=== PATIENT | female | born 1950 | race African-American/Black ===

== ENCOUNTER 2016-09-18 04:38 | Emergency (ER) | payer MEDICARE, OTHER ==
[2016-09-18 05:41] LABS: ABSOLUTE EOSINOPHILS # (AUTO) 0.1 10^3/uL (0.0-0.6); ABSOLUTE LYMPHOCYTES (AUTO) 0.6 10^3/uL (0.5-4.7); ABSOLUTE MONOCYTES (AUTO) 0.5 10^3/uL (0.1-1.4); ABSOLUTE NEUT (AUTO) 3.1 10^3/uL (1.7-8.2); BASOPHILS % (AUTO) 0.2 % (0-2); EOSINOPHILS % (AUTO) 1.5 % (0-6); HEMATOCRIT 37.6 % (36.0-47.0); HEMOGLOBIN 12.1 g/dL (12.0-15.5); HGB HCT DIFFERENCE -1.3; LYMPHOCYTES % (AUTO) 14.2 % (13-45); MEAN CORPUSCULAR HEMOGLOBIN 29.8 pg (27.0-33.4); MEAN CORPUSCULAR HGB CONC 32.1 g/dL (32.0-36.0); MEAN CORPUSCULAR VOLUME 93 fl (80-97); MONOCYTES % (AUTO) 11.2 % (3-13); RED BLOOD COUNT 4.04 10^6/uL (3.72-5.28); RED CELL DISTRIBUTION WIDTH 14.8 % (11.5-14.0); SEGMENTED NEUTROPHILS % (AUTO) 72.9 % (42-78); WHITE BLOOD COUNT 4.3 10^3/uL (4.0-10.5)
[2016-09-18 05:56] LABS: APPEARANCE,URINE SLIGHTLY-CLOUDY; BILIRUBIN,URINE NEGATIVE (NEGATIVE); GLUCOSE, URINE NEGATIVE (NEGATIVE); KETONES,URINE NEGATIVE (NEGATIVE); LEUKOCYTE ESTERASE,URINE TRACE (NEGATIVE); NITRITE,URINE NEGATIVE (NEGATIVE); PROTEIN,URINE 30 mg/dL (NEGATIVE); URINE SPECIFIC GRAVITY 1.026
[2016-09-18 06:15] LABS: ALANINE AMINOTRANSFERASE 32 U/L (9-52); ALBUMIN 4.2 g/dL (3.5-5.0); ALKALINE PHOSPHATASE 74 U/L (38-126); ANION GAP 11 (5-19); ASPARTATE AMINO TRANSFERASE 44 U/L (14-36); BILIRUBIN,TOTAL 1.1 mg/dL (0.2-1.3); BLOOD UREA NITROGEN 29 mg/dL (7-20); CALCIUM 9.5 mg/dL (8.4-10.2); CARBON DIOXIDE 30 mmol/L (22-30); CHLORIDE 100 mmol/L (98-107); CREATININE RESULT 1.34 mg/dL (0.52-1.25); GLUCOSE 130 mg/dL (75-110); LIPASE 81.8 U/L (23-300); SODIUM 140.8 mmol/L (137-145); TOTAL PROTEIN 8.6 g/dL (6.3-8.2)
[2016-09-18] MEDS ORDERED: NORMAL SALINE 500 ML IV ONE (06:28)
[2016-09-18] MEDS ORDERED: ONDANSETRON HCL INJ/PF 4 MG/2 ML SDV IV ONE (06:28)
--- NOTE | 2016-09-18 06:33 | ER Document Report ---
ED General - General Chief Complaint: Nausea/Vomiting/Diarrhea Stated Complaint: VOMITING,ABDOMINAL PAIN Mode of Arrival: Ambulatory Information source: Patient Notes: This is a 66-year-old -[place] female who presents with nausea vomiting and diarrhea along with abdominal discomfort for the past 2 days. Also she states that she has had subjective fevers and had a recorded temperature of 100.4 at 2 AM this morning. She denies any recent travel or known sick contacts. Her last emesis and diarrhea were both yesterday evening and she has not attempted to take any oral fluids since about 2200 last night. She denies any dysuria or urinary complaints. She does endorse lower abdominal pain. TRAVEL OUTSIDE OF THE [place] IN LAST 30 DAYS: No - Related Data Allergies/Adverse Reactions: ibandronate sodium [From Boniva] Allergy (Severe, Verified 06/30/13 08:37) Seizures prochlorperazine edisylate [From Compazine] Allergy (Intermediate, Verified 08:37) delerious, altered mental status prochlorperazine maleate [From Compazine] Allergy (Intermediate, Verified 08:37) delerious, altered mental status Sulfa (Sulfonamide Antibiotics) Allergy (Mild, Verified 06/30/13 08:37) Hives Past Medical History - General Information source: Patient, [facility] Records - Social History Smoking Status: Never Smoker Chew tobacco use (# tins/day): No Frequency of alcohol use: None Drug Abuse: None Family History: None Patient has suicidal ideation: No Patient has homicidal ideation: No - Past Medical History Cardiac Medical History: Reports: Hx Coronary Artery Disease - HIGH CHOLESTEROL , Hx Hypertension Denies: Hx Heart Attack Pulmonary Medical History: Reports: Hx Pneumonia Denies: Hx Asthma, Hx Bronchitis, Hx COPD Neurological Medical History: Reports: Hx Seizures - reaction from taking boniva. Denies: Hx Cerebrovascular Accident Endocrine Medical History: Reports: Hx Hypothyroidism Renal/ Medical History: Denies: Hx Peritoneal Dialysis Musculoskeltal Medical History: Denies Hx Arthritis Past Surgical History: Reports: Hx Hysterectomy, Hx Thyroid Surgery - Thyroidectomy. Denies: Hx Pacemaker - Immunizations Hx Diphtheria, Pertussis, Tetanus Vaccination: Yes Review of Systems - Review of Systems Notes: REVIEW OF SYSTEMS: CONSTITUTIONAL : As per history of present illness EENT: Denies eye, ear, throat, or mouth pain or symptoms. Denies nasal or sinus congestion. CARDIOVASCULAR: Denies chest pain. RESPIRATORY: Denies cough, cold, or chest congestion. Denies shortness of breath, difficulty breathing, or wheezing. GASTROINTESTINAL: As per history of present illness GENITOURINARY: Denies difficulty urinating, painful urination, burning, frequency, or blood in urine. MUSCULOSKELETAL: Denies neck or back pain or joint pain or swelling. SKIN: Denies rash or skin lesions. HEMATOLOGIC : Denies easy bruising or bleeding. LYMPHATIC: Denies swollen, enlarged glands. NEUROLOGICAL: Denies altered mental status or loss of consciousness. Denies headache. PSYCHIATRIC: Denies anxiety or stress or depression. ALL OTHER SYSTEMS REVIEWED AND NEGATIVE. Physical Exam - Vital signs Vitals: Temp Pulse Resp BP Pulse Ox 98.7 F 89 16 98/69 L 96 09/18/16 04:45 09/18/16 04:45 09/18/16 04:45 09/18/16 04:45 09/18/16 04:45 - Notes Notes: PHYSICAL EXAMINATION: GENERAL: Well-appearing, well-nourished adult female, pleasant and conversant and no acute distress HEAD: Atraumatic, normocephalic. EYES: Pupils equal round and reactive to light, extraocular movements intact, sclera anicteric, conjunctiva are normal. ENT: nares patent, oropharynx clear without exudates. Mucous membranes somewhat dry NECK: Normal range of motion, supple without lymphadenopathy LUNGS: Breath sounds clear to auscultation bilaterally and equal. No wheezes rales or rhonchi. HEART: Regular rate and rhythm without murmurs ABDOMEN: Soft, diffuse mild TTP worse in lower quadrants, no guarding/rebound/ rigidity, bowel sounds active EXTREMITIES: Normal range of motion, no pitting or edema. No cyanosis. NEUROLOGICAL: Cranial nerves grossly intact. Normal speech. No gross focal motor or sensory deficits appreciated. PSYCH: Normal mood, normal affect. SKIN: Warm, Dry, normal turgor, no rashes or lesions noted. Course - Re-evaluation Re-evalutation: 09/18/16 08:16 Patient states that she is feeling better after the IV fluids and Zofran. She has had no vomiting in the emergency department. Her lab evaluation is reassuring. She has a benign nonsurgical abdomen. Her CT demonstrated no surgical process. She does have a somewhat distended gallbladder but no signs of cholecystitis and reassuring blood work. Clinically her symptoms are not consistent with biliary colic as she has had nausea vomiting and diarrhea with lower abdominal cramping does not have any right upper quadrant tenderness to palpation. I have recommended that she follow up for an outpatient gallbladder ultrasound through her primary care physician. She will be discharged with Zofran to take as needed as well as rehydration instructions. She will follow- up with her primary care physician. We discussed strict return precautions to include high fevers persistent vomiting or worsening symptoms and she is very comfortable with this plan. - Vital Signs Vital signs: Temp Pulse Resp BP Pulse Ox 98.8 F 71 17 116/57 L 100 09/18/16 07:47 09/18/16 07:47 09/18/16 07:47 09/18/16 07:47 09/18/16 07:47 - Laboratory Result Diagrams: 09/18/16 05:05 09/18/16 05:05 Laboratory results interpreted by me: 09/18/16 09/18/16 09/18/16 05:05 05:05 05:05 RDW 14.8 H BUN 29 H Creatinine 1.34 H Est GFR ( Amer) 48 L Est GFR (Non-Af Amer) 39 L Glucose 130 H AST 44 H Total Protein 8.6 H Urine Protein 30 H Urine Urobilinogen 2.0 H Ur Leukocyte Esterase TRACE H Discharge - Discharge Clinical Impression: Nausea, vomiting, and diarrhea, Dehydration Condition: Stable Disposition: HOME, SELF-CARE Additional Instructions: VOMITING: Vomiting (or nausea without vomiting) can be caused by many other different problems. It can mean that something's wrong with the stomach, such as ulcers or inflammation or the intestinal tract, such as appendicitis. But it can also be a symptom of a problem that has nothing to do with the stomach or intestines. Vomiting is common with severe headaches, earaches, tonsillitis, and kidney infections, etc. We see it with pneumonia or heart attacks. Drugs can cause nausea and vomiting. Many abdominal problems cause vomiting; for example, gallstones, kidney stones, pancreatitis, and intestinal obstruction ( blocked bowels). In most cases, curing the vomiting depends on fixing the problem that caused it. For temporary relief, we may use an anti-nausea medicine. For home use, we can prescribe suppositories, chewable pills, pills that dissolve in the mouth, or liquid anti-nausea drugs. If the vomiting seems to be caused by a problem in the stomach, acid-suppressing drugs may be prescribed as well. It's important to avoid dehydration. Sip small amounts of clear liquids ( soft drinks, tea, broth, etc) . Try to take fluids frequently even if you are vomiting to prevent dehydration. Take increasing amounts of fluid and when liquids are being consumed successfully, advance to small amounts of bland food (toast, soups, mashed potatoes, etc.) until you are able to resume a regular diet. Avoid aspirin, tobacco, and alcohol. If the vomiting worsens, if the problem that's making you vomit worsens, or if there's evidence of bleeding in the stomach (such as black, tarry stool, or bloody or black vomit), you should return immediately. Also, return if abdominal pain worsens or becomes localized to one area or you develop high fever. Call your doctor if you aren't improved in 24 hours. DIARRHEA, NON-SPECIFIC: Diarrhea means frequent, watery stools. There are many causes. Any problem that keeps the intestinal tract from absorbing water from the stool can lead to diarrhea. A sudden new diarrhea problem is usually caused by a virus, food sensitivity, toxic bacteria, or drugs. In this case, we expect the problem to go away soon. Testing is done only if you seem seriously ill from the diarrhea. If you have chronic diarrhea, or diarrhea that keeps coming back, we need to find out why. Chronic diarrhea can be due to inflammation of the bowels such as Crohn's disease or ulcerative colitis, food sensitivity such as intolerance to lactose or wheat protein, irritable bowel syndrome, and other problems. If your diarrhea is a significant problem but it's not clear why you have it, we' ll refer you to a specialist for further testing. During an episode of diarrhea, drink small amounts (two to six ounces) of clear liquids (soft drinks, sport drinks, herb teas, broth, etc). Take fluids frequently to prevent dehydration. It's usually not a problem to take mild anti- diarrhea medication such as Kaopectate or Pepto-Bismol. As the diarrhea eases, advance to small amounts of bland food (mashed potato, toast) for 24 hours. Call the physician if blood appears in your vomit or stool, if vomiting lasts longer than 24 hours, if the abdominal pain worsens or becomes localized to one area, if you develop high fever, or if you become lightheaded and weak. VIRAL SYNDROME: The physician has diagnosed a viral infection. Viruses not only cause "colds," but can cause many different symptoms including generalized aching, fever, headache, cough, diarrhea, nausea, vomiting, and fatigue. The treatment, for the most part, is simply relief of symptoms. This means that antibiotics are usually not given. Rest, fluids, pain medications and, occasionally, medication for the specific symptoms that are most bothersome will be prescribed. Use good handwashing to avoid passing the virus to others. Shared toys should be cleaned with disinfectant. Clean the toilets, sinks, and counter surfaces in bathrooms. Launder clothing in hot water. Contact the physician if you develop any new or unusual symptoms such as severe headache, stiff neck, high fever, chest pain, productive cough, or shortness of breath. You should be rechecked if you don't see marked improvement within seven to 10 days. INTRAVENOUS (I V) FLUIDS: As part of your care today, you received intravenous (IV) fluids. IV fluids are administered to patients who are dehydrated or to those who have certain chemical (electrolyte) abnormalities that need correcting. ANTINAUSEA MEDICATION: You have been given a medication to suppress nausea and vomiting. This type of medication can be given as a shot, pill, or suppository. It will usually last for many hours. Pills and shots usually last six to eight hours. For the typical illness, only one or two doses of the medication may be necessary. Mild lightheadedness may occur. This type of medicine can cause drowsiness. Do not drive or operate dangerous machinery while under its influence. Do not mix with alcohol. See your doctor at once if you have muscle spasms or tightness, or uncontrollable motions (particularly of the neck, mouth, or jaw). Persistent vomiting or severe lightheadedness should also be evaluated by the physician. FOLLOW-UP CARE: If you have been referred to a physician for follow-up care, call the physician s office for an appointment as you were instructed or within the next two days. If you experience worsening or a significant change in your symptoms, notify the physician immediately or return to the Emergency Department at any time for re-evaluation. As we discussed please follow-up with your primary care physician in the next 24 -48 hours. As an outpatient you should proceed with an ultrasound evaluation of her gallbladder. Please rest at home and drink plenty of fluids. Return to the emergency department for repeat evaluation for any persistent high fevers, worsening abdominal pain, persistent vomiting despite medication, or any worsening symptoms or concerns. Prescriptions: Ondansetron [Zofran Odt 4 mg Tablet] 1 tab PO Q4H PRN #15 tab.rapdis PRN Reason: For Nausea/Vomiting Referrals: THOMAS ROSE MD [Primary Care Provider] - Follow up in 3-5 days
[2016-09-18 08:40] VITALS: BP 113/52
== END 2016-09-18 08:44 | disposition home or self-care (01) ==
LOC: ER 04:38
DX: R11.2 Nausea with vomiting, unspecified (principal); R19.7 Diarrhea, unspecified; K82.8 Other specified diseases of gallbladder; R10.30 Lower abdominal pain, unspecified; E86.0 Dehydration; I25.10 Atherosclerotic heart disease of native coronary artery without angina pectoris; I10 Essential (primary) hypertension; Z88.8 Allergy status to other drugs, medicaments and biological substances; Z88.2 Allergy status to sulfonamides; Z90.710 Acquired absence of both cervix and uterus
CPT/HCPCS: 99284; 96374; 36415; 83690; 85025; 80053; 81001; 74176; J2405; J7040

== ENCOUNTER → 2017-04-09 | Outpatient (CLI) | payer MEDICARE, OTHER ==
--- NOTE | 2017-04-09 17:50 | WOMENS IMAGING REPORT ---
EXAM DESCRIPTION: 3D SCREENING MAMMO BILAT COMPLETED DATE/TIME: 04/09/2017 10:19 am REASON FOR STUDY: SCREENING MAMMO Z12.31 ENCNTR SCREEN MAMMOGRAM FOR MALIGNANT NEOPLASM OF JOSE COMPARISON: Multiple since 2008 TECHNIQUE: Standard craniocaudal and mediolateral oblique views of each breast recorded using digita l acquisition and breast tomosynthesis. LIMITATIONS: None. FINDINGS: No masses, calcifications or architectural distortion. No areas of suspicion. Read with the assistance of CAD. .[facility] - R2 [employer]ova Version 1.3 .[facility] - R2 Cenova Version 1.3 .[facility] - R2 Cenova Version 2.4 .[facility] [place] - R2 Cenova Version 2.4 .[facility] - R2 [employer] Version 9.2 IMPRESSION: NORMAL MAMMOGRAM. BIRADS 1. BREAST DENSITY: b. There are scattered areas of fibroglandular density. BIRAD: 1 NEGATIVE RECOMMENDATION: ROUTINE SCREENING Please continue yearly bilateral screening tomosynthesis in April 2018. COMMENT: The patient has been notified of the results by letter per [place] requirements. Additional no tification policies are in place for contacting patient with suspicious or incomplete findings. Quality ID #[id number]: The [employer] recommends an annual screening mammogram for women aged 40 years or over. This facility utilizes a reminder system to ensure that all patients receive reminder letters, and/or direct phone calls for appointments. This includes reminders for routine scr eening mammograms, diagnostic mammograms, or other Breast Imaging Interventions when appropriate. Th is patient will be placed in the appropriate reminder system. The [employer] (ACR) has developed recommendations for screening MRI of the breast s in certain patient populations, to be used in conjunction with mammography. Breast MRI surveillanc e may be appropriate for women with more than 20% lifetime risk of developing breast cancer as deter mined by genetic testing, significant family history of the disease, or history of mantle radiation f or Hodgkins Disease. ACR Practice Guidelines 2008. DBT Technology DBT is a type of tomographic mammography. With conventional mammography, overlapping breast tissue ma y make lesions difficult to detect, even with good compression. DBT uses an x-ray tube that rotates a round the breast, taking images at different angles. These images are then combined to create thin sl ices of the breast that the radiologist can view as a 3D reconstruction. The [employer] unit can perform full-field digital mammograms (2D imaging); or DBT (3D imaging); or both, in a combination mode that quickly performs both the mammogram and the tomosynthesis scan while the breast is still compressed. PQRS 6045F: Fluoroscopic imaging is not utilized for breast tomosynthesis. TECHNICAL DOCUMENTATION: FINDING NUMBER: (1) ASSESSMENT: (1) JOB ID: [id number] [employer]- All Rights Reserved
== END ==
LOC: WI 10:04
PROVIDERS: ATTEND Internal Medicine Geriatric Medicine
DX: Z12.31 Encounter for screening mammogram for malignant neoplasm of breast (principal)
CPT/HCPCS: 77063; G0202; 77067

== ENCOUNTER 2017-09-23 21:09 | Emergency (ER) | payer MEDICARE, OTHER ==
[2017-09-23] MEDS ORDERED: HYDROMORPHONE HCL INJ/PF 2 MG/ML AMPULE IV ONE ×3 (21:12→22:52)
[2017-09-23] MEDS ORDERED: ONDANSETRON HCL INJ/PF 4 MG/2 ML SDV IV ONE (21:12)
--- NOTE | 2017-09-23 21:22 | ER Document Report ---
ED Extremity Problem, Upper - General Stated Complaint: FALL,RIGHT ARM LACERATIONS Time Seen by Provider: 09/23/17 21:11 Mode of Arrival: Medic Information source: Patient, Relative TRAVEL OUTSIDE OF THE [place] IN LAST 30 DAYS: No - HPI Patient complains to provider of: Injury Onset: Just prior to arrival Recent injury: Yes Where: Home Quality of pain: Sharp Severity of pain: Moderate Context: Fall - FELL INTO CABINET, BROKE GLASS IN DOOR Associated symptoms: None Exacerbated by: Movement Relieved by: Rest, Positioning Similar symptoms previously: No Recently seen / treated by doctor: No - Related Data Allergies/Adverse Reactions: ibandronate sodium [From Boniva] Allergy (Severe, Verified 06/30/13 08:37) Seizures prochlorperazine edisylate [From Compazine] Allergy (Intermediate, Verified 08:37) delerious, altered mental status prochlorperazine maleate [From Compazine] Allergy (Intermediate, Verified 08:37) delerious, altered mental status Sulfa (Sulfonamide Antibiotics) Allergy (Mild, Verified 06/30/13 08:37) Hives Past Medical History - General Information source: Patient - Social History Smoking Status: Never Smoker Cigarette use (# per day): No Chew tobacco use (# tins/day): No Frequency of alcohol use: None Drug Abuse: None Lives with: Spouse/Significant other Family History: None Patient has suicidal ideation: No Patient has homicidal ideation: No - Past Medical History Cardiac Medical History: Reports: Hx Coronary Artery Disease - HIGH CHOLESTEROL , Hx Hypertension Denies: Hx Heart Attack Pulmonary Medical History: Reports: Hx Pneumonia Denies: Hx Asthma, Hx Bronchitis, Hx COPD Neurological Medical History: Reports: Hx Seizures - reaction from taking boniva. Denies: Hx Cerebrovascular Accident Endocrine Medical History: Reports: Hx Hypothyroidism Renal/ Medical History: Denies: Hx Peritoneal Dialysis Musculoskeltal Medical History: Denies Hx Arthritis Psychiatric Medical History: Reports: None Past Surgical History: Reports: Hx Hysterectomy, Hx Thyroid Surgery - Thyroidectomy. Denies: Hx Pacemaker - Immunizations Hx Diphtheria, Pertussis, Tetanus Vaccination: Yes Review of Systems - Review of Systems Constitutional: No symptoms reported EENT: No symptoms reported Cardiovascular: No symptoms reported Respiratory: No symptoms reported Gastrointestinal: No symptoms reported Genitourinary: No symptoms reported Female Genitourinary: Post menopausal Musculoskeletal: No symptoms reported Skin: See HPI Neurological/Psychological: No symptoms reported Physical Exam - Vital signs Vitals: Temp 97.4 F 09/23/17 21:30 Interpretation: Normal. No: Hypotensive, Tachycardic, Tachypneic - General General appearance: Appears well In distress: None - HEENT Head: Normocephalic Eyes: Normal Ears: Normal Nasal: Normal Mouth/Lips: Normal Mucous membranes: Normal - Respiratory Respiratory status: No respiratory distress - Cardiovascular Rhythm: Regular - Abdominal Inspection: Normal Distension: No distension - Extremities General upper extremity: No: Normal inspection - R. ELBOW (SEE BELOW) General lower extremity: Normal inspection Elbow: Laceration - 3 cm OVER DISTAL BICEP, 8.3 cm 0VER PROXIMAL FLEXOR MUSCLES. DEPTH THRU SQ FAT. - Neurological Neuro grossly intact: Yes Cognition: Normal Orientation: AAOx4 Sensory: Normal - INTACT ALL 3 PRINCIPAL NERVES DISTAL TO INJURY - Psychological Associated symptoms: Normal affect, Normal mood - Skin Skin Temperature: Warm Skin Moisture: Dry Skin Color: Normal Skin Turgor: Elastic Course - Vital Signs Vital signs: Temp Pulse Resp BP Pulse Ox 97.4 F 18 119/59 L 98 09/23/17 21:30 09/23/17 22:01 09/23/17 22:01 09/23/17 22:01 Procedures - Immobilization Right Arm Time completed: 00:15 Pre-Proc Neuro Vasc Exam: Normal Immobilizer type: Long arm posterior Performed by: PCT Post-Proc Neuro Vasc Exam: Normal, Unchanged from pre-exam Alignment checked and good: Yes - Laceration/Wound Repair Right Arm Time completed: 23:58 Wound length (cm): 11.3 Wound's Depth, Shape: Superficial, Linear Laceration pre-procedure: Sterile PPE donned, Sterile drapes applied, Shur- Clens applied Anesthetic type: 1% Lidocaine w/epi Volume Anesthetic (mLs): 20 Wound explored: Clean Irrigated w/ Saline (mLs): 180 Wound Debrided: Minimal Wound Repaired With: Sutures Suture Size/Type: 4:0, Prolene Number of Sutures: 21 Layer Closure?: Yes Deep Layer Suture Size/Type: 4:0, Other - vicryl Number Deep Layer Sutures: 5 Post-procedure wound care: Sterile dressing applied, Splint applied, Sling applied Post-procedure NV exam normal: Yes Complications: No Notes: 09/24/17 00:05 Wound depth extends through the subcutaneous fatty layer and exposes the muscle fascia. There is a small (1.5 cm) laceration of the muscle fascia of the forearm extensor muscles. No major vessels or nerves are identified. Adult Front & Back picture: 1 - 3.0 cm LAC, SUTURED 2 - 8.3 cm LAC, SUTURED Discharge - Discharge Clinical Impression: Laceration of arm, right, multiple sites Qualifiers: Encounter type: initial encounter Qualified Code(s): S41.111A - Laceration without foreign body of right upper arm, initial encounter Condition: Stable Disposition: HOME, SELF-CARE Instructions: Laceration Care ([facility]), Prophylactic Antibiotic ([facility]), Oral Narcotic Medication ([facility]), Elevate the Injury ([facility]), Temporary Splint ([facility]) Additional Instructions: KEEP SPLINT ON AND BANDAGE INTACT FOR NEXT 48 HOURS. KEEP THE INJURY ELEVATED MUCH POSSIBLE. MEDS DIRECTED. RETURN TO E.R. FOR WOUND CHECK WEDNESDAY OR WEDNESDAY. FOLLOW UP WITH DR. DRAPER NEXT WEEK, CALL OFFICE TOMORROW (WEDNESDAY) FOR APPOINTMENT. RETURN TO E.R. FOR RE-EVALUATION IF ANY PROBLEMS ARISE, OR IF YOU FEEL YOU ARE GETTING WORSE, ANY TIME. Prescriptions: Hydrocodone/Acetaminophen [[place] 5-325 mg Tablet] 1 tab PO Q4HP PRN #14 tablet PRN Reason: For Pain Cephalexin Monohydrate [Keflex 500 mg Capsule] 500 mg PO QID #20 capsule Referrals: FLORENCIA DRAPER, [ACTIVE STAFF] - Follow up as needed
[2017-09-23] MEDS ORDERED: HYDROMORPHONE HCL INJ/PF 2 MG/ML AMPULE ONE (21:52)
--- NOTE | 2017-09-23 22:12 | RADIOLOGY REPORT (SQ) ---
EXAM DESCRIPTION: ELBOW RIGHT AP/LAT COMPLETED DATE/TIME: 09/23/2017 9:47 pm REASON FOR STUDY: LACERATED BY BROKEN GLASS, R/O FB COMPARISON: None. NUMBER OF VIEWS: Four views. TECHNIQUE: AP, lateral, and both oblique radiographic images acquired of the right elbow. LIMITATIONS: None. FINDINGS: MINERALIZATION: Normal. BONES: No acute fracture or dislocation. No worrisome bone lesions. JOINT: No effusion. SOFT TISSUES: Mild soft tissue swelling. No foreign body. OTHER: No other significant finding. IMPRESSION: No fracture identified. TECHNICAL DOCUMENTATION: JOB ID: [id number] [employer]- All Rights Reserved Reading location - IP/workstation name: [email or web address]
[2017-09-23] MEDS ORDERED: LIDOCAINE 1%/EPINEPHRINE INJ 20 ML VIAL INJ ONE ×2 (22:17→23:23)
[2017-09-24] MEDS ORDERED: CEPHALEXIN 500 MG CAPSULE PO ONE (00:31)
[2017-09-24] MEDS ORDERED: ONDANSETRON ODT 4 MG TAB (6 TAB/ER DISP) PO PRN (00:31)
[2017-09-24] MEDS ORDERED: HYDROCODONE/ACETAMINOPHEN 5-325 MG (6 TAB/ER DISP) PO PRN (00:34)
[2017-09-24 01:30] VITALS: BP 120/60
== END 2017-09-24 01:00 | disposition home or self-care (01) ==
LOC: ER 21:09
PROC: 0HQDXZZ Repair Right Lower Arm Skin, External Approach (ICD-10-PCS; principal; 2017-09-23)
DX: S41.111A Laceration without foreign body of right upper arm, initial encounter (principal); S51.811A Laceration without foreign body of right forearm, initial encounter; W18.39XA Other fall on same level, initial encounter; Y92.009 Unspecified place in unspecified non-institutional (private) residence as the place of occurrence of the external cause; I10 Essential (primary) hypertension; I25.10 Atherosclerotic heart disease of native coronary artery without angina pectoris; E03.9 Hypothyroidism, unspecified; Z88.2 Allergy status to sulfonamides; Z90.710 Acquired absence of both cervix and uterus
CPT/HCPCS: 96376; 99284; 96374; 96375; 73070; 12004; A9270 ×3; J3490; J1170; J2405

== ENCOUNTER 2017-09-26 12:30 | Emergency (ER) | payer MEDICARE, OTHER ==
--- NOTE | 2017-09-26 13:28 | ER Document Report ---
ED Wound - General Chief Complaint: Wound Recheck Stated Complaint: RECHECK/RIGHT ARM INJURY Time Seen by Provider: 09/26/17 12:51 Mode of Arrival: Ambulatory Information source: Patient TRAVEL OUTSIDE OF THE [place] IN LAST 30 DAYS: No - HPI Patient complains to provider of: Laceration Notes: Patient is here today for recheck of her right arm lacerations. She was seen here on the after falling and sustaining deep lacerations to the right bicep area. This laceration was repaired in the emergency department. She had several sutures placed in 2 separate lacerations and was placed in a posterior arm splint and a sling. She states that she has been doing well. She denies any significant pain. She denies any fevers. She denies any numbness, tingling , weakness. She has an appointment for follow-up with orthopedics tomorrow. She denies chest pain or shortness of breath. No nausea, vomiting, diarrhea. She denies any other complaints at this time. - Related Data Allergies/Adverse Reactions: ibandronate sodium [From Boniva] Allergy (Severe, Verified 06/30/13 08:37) Seizures prochlorperazine edisylate [From Compazine] Allergy (Intermediate, Verified 08:37) delerious, altered mental status prochlorperazine maleate [From Compazine] Allergy (Intermediate, Verified 08:37) delerious, altered mental status Sulfa (Sulfonamide Antibiotics) Allergy (Mild, Verified 06/30/13 08:37) Hives Past Medical History - Social History Smoking Status: Unknown if Ever Smoked Family History: None - Past Medical History Cardiac Medical History: Reports: Hx Coronary Artery Disease - HIGH CHOLESTEROL , Hx Hypertension Denies: Hx Heart Attack Pulmonary Medical History: Reports: Hx Pneumonia Denies: Hx Asthma, Hx Bronchitis, Hx COPD Neurological Medical History: Reports: Hx Seizures - reaction from taking boniva. Denies: Hx Cerebrovascular Accident Endocrine Medical History: Reports: Hx Hypothyroidism Renal/ Medical History: Denies: Hx Peritoneal Dialysis Musculoskeltal Medical History: Denies Hx Arthritis Past Surgical History: Reports: Hx Hysterectomy, Hx Thyroid Surgery - Thyroidectomy. Denies: Hx Pacemaker - Immunizations Hx Diphtheria, Pertussis, Tetanus Vaccination: Yes Review of Systems - Review of Systems -: Yes All other systems reviewed and negative Physical Exam - Vital signs Vitals: Temp Pulse Resp BP Pulse Ox 98.1 F 67 16 150/64 H 100 09/26/17 12:36 09/26/17 12:36 09/26/17 12:36 09/26/17 12:36 09/26/17 12:36 - Notes Notes: GENERAL: alert, cooperative, nontoxic, no distress. HEAD: normocephalic, atraumatic EYES: conjunctiva pink without discharge, no external redness or swelling. EARS: no external swelling, no external redness NOSE: atraumatic, no external swelling MOUTH/THROAT: mucous membranes moist and pink NECK: soft, supple, full range of motion, no meningismus. CHEST: no distress, lungs clear and equal throughout. No wheezing, rales, rhonchi. CARDIAC: regular rate and rhythm, no murmur, normal capillary refill, normal pulses. BACK: full range of motion, no CVA tenderness. EXTREMITIES: full range of motion of all extremities. No redness, no swelling. Patient initially in a posterior arm splint to the right arm. Splint and dressings were removed. The patient is noted to have 2 healing lacerations with sutures in place. There is no surrounding erythema. There is no significant tenderness. No redness or drainage. Patient has a normal pulse and sensation distally. NEURO: alert and oriented 3, no focal deficits, full range of motion of all extremities. PYSCH: appropriate mood, affect. Patient is cooperative. SKIN: pink, warm, dry, no rash. Course - Re-evaluation Re-evalutation: 09/26/17 13:25 Patient is nontoxic appearing with stable vitals. She was seen here on the after sustaining a deep laceration to the right upper arm. Sutures were placed at that time. She is here for a recheck. She denies any complaints. On exam the wounds are healing well with no signs of infection. She has a normal neurovascular exam distally. Wounds were cleaned, bacitracin was applied , sterile dressings were applied, the posterior splint was reapplied by myself. The sling was reapplied by myself. Patient has a normal neurovascular exam after splint placement. She will be discharged home with instructions to follow -up with orthopedics as scheduled tomorrow. Follow-up sooner for increasing pain, fever, numbness, tingling, weakness, any further concerns. The patient is noted to have elevated blood pressure during today's emergency department visit. The patient was informed of this finding. The patient was instructed that this may be related to pre-hypertension and requires further evaluation with a primary care provider. The patient has no hypertensive symptoms at this time. The patient's emergency department workup and current diagnosis were explained to the patient and or family. Follow-up instructions were provided. Medications if prescribed were discussed. Instructions for when to return to the emergency department including specific worrisome symptoms were discussed with the patient and/or family. - Vital Signs Vital signs: Temp Pulse Resp BP Pulse Ox 98.1 F 67 16 150/64 H 100 09/26/17 12:36 09/26/17 12:36 09/26/17 12:36 09/26/17 12:36 09/26/17 12:36 Procedures - Immobilization Right arm Pre-Proc Neuro Vasc Exam: Normal Immobilizer type: Long arm posterior Performed by: Provider Post-Proc Neuro Vasc Exam: Normal Alignment checked and good: Yes Discharge - Discharge Clinical Impression: Encounter for re-check of laceration wound Condition: Stable Disposition: HOME, SELF-CARE Instructions: Laceration Care ([facility]) Additional Instructions: Keep splint on until you follow-up with orthopedics. Follow-up with orthopedics as scheduled tomorrow. Follow-up sooner for increasing pain, fever , numbness, tingling, weakness, any further concerns. Your blood pressure was elevated during today's visit. Have this rechecked with your doctor. Forms: Elevated Blood Pressure, Smoking Cessation Education Referrals: CHRISSIE DEMPSEY MD [Primary Care Provider] - Follow up as needed
[2017-09-26 13:53] VITALS: BP 131/67
== END 2017-09-26 13:52 | disposition home or self-care (01) ==
LOC: ER 12:30
DX: S41.111D Laceration without foreign body of right upper arm, subsequent encounter (principal); W19.XXXD Unspecified fall, subsequent encounter; I25.10 Atherosclerotic heart disease of native coronary artery without angina pectoris; I10 Essential (primary) hypertension; Z88.8 Allergy status to other drugs, medicaments and biological substances; Z88.2 Allergy status to sulfonamides
CPT/HCPCS: 99282

== ENCOUNTER → 2018-02-01 | Outpatient (CLI) | payer MEDICARE, OTHER ==
[2018-02-01 15:26] LABS: ALANINE AMINOTRANSFERASE 29 U/L (9-52); ALBUMIN 3.9 g/dL (3.5-5.0); ALKALINE PHOSPHATASE 89 U/L (38-126); ANION GAP 12 (5-19); ASPARTATE AMINO TRANSFERASE 25 U/L (14-36); BILIRUBIN,DIRECT 0.3 mg/dL (0.0-0.4); BILIRUBIN,TOTAL 0.5 mg/dL (0.2-1.3); BLOOD UREA NITROGEN 18 mg/dL (7-20); CALCIUM 9.8 mg/dL (8.4-10.2); CARBON DIOXIDE 28 mmol/L (22-30); CHLORIDE 104 mmol/L (98-107); GLUCOSE 133 mg/dL (75-110); POTASSIUM 4.5 mmol/L (3.6-5.0); SODIUM 144.4 mmol/L (137-145); TOTAL PROTEIN 7.6 g/dL (6.3-8.2)
[2018-02-01 15:43] LABS: FREE T3 5.19 pg/mL (2.77-5.27)
[2018-02-01 16:06] LABS: THYROID STIMULATING HORMONE < 0.01 uIU/mL (0.47-4.68)
== END ==
LOC: OD 13:50
PROVIDERS: ATTEND Internal Medicine Geriatric Medicine
DX: E03.9 Hypothyroidism, unspecified (principal)
CPT/HCPCS: 36415; 80053; 84439; 84443; 84481

== ENCOUNTER → 2018-04-29 | Outpatient (CLI) | payer MEDICARE ==
--- NOTE | 2018-04-29 09:52 | WOMENS IMAGING REPORT ---
EXAM DESCRIPTION: 3D SCREENING MAMMO BILAT COMPLETED DATE/TIME: 04/29/2018 9:03 am REASON FOR STUDY: BILATERAL SCREENING MAMMO 3D/Z12.31 Z12.31 ENCNTR SCREEN MAMMOGRAM FOR MALIGNANT NEOPLASM OF JOSE COMPARISON: 04/09/2017 and 03/18/2016. TECHNIQUE: Standard craniocaudal and mediolateral oblique views of each breast recorded using digita l acquisition and breast tomosynthesis. LIMITATIONS: None. FINDINGS: No masses, calcifications or architectural distortion. No areas of suspicion. Read with the assistance of CAD. .[facility] - R2 Cenova Version 1.3 .[facility] Imaging - R2 Cenova Version 1.[address] - R2 Cenova Version 2.4 .[facility] [place] R2 Cenova Version 2.4 .[facility] - R2 Fire Tower Keeper Version 9.2 IMPRESSION: NORMAL MAMMOGRAM. BIRADS 1. BREAST DENSITY: b. There are scattered areas of fibroglandular density. BIRAD: 1 NEGATIVE RECOMMENDATION: ROUTINE SCREENING COMMENT: The patient has been notified of the results by letter per SA requirements. Additional no tification policies are in place for contacting patient with suspicious or incomplete findings. Quality ID #225: The [employer] recommends an annual screening mammogram for women aged 40 years or over. This facility utilizes a reminder system to ensure that all patients receive reminder letters, and/or direct phone calls for appointments. This includes reminders for routine scr eening mammograms, diagnostic mammograms, or other Breast Imaging Interventions when appropriate. Th is patient will be placed in the appropriate reminder system. The [employer] (ACR) has developed recommendations for screening MRI of the breast s in certain patient populations, to be used in conjunction with mammography. Breast MRI surveillanc e may be appropriate for women with more than 20% lifetime risk of developing breast cancer as deter mined by genetic testing, significant family history of the disease, or history of mantle radiation f or Hodgkins Disease. ACR Practice Guidelines 2008. DBT Technology DBT is a type of tomographic mammography. With conventional mammography, overlapping breast tissue ma y make lesions difficult to detect, even with good compression. DBT uses an x-ray tube that rotates a round the breast, taking images at different angles. These images are then combined to create thin sl ices of the breast that the radiologist can view as a 3D reconstruction. The [employer] unit can perform full-field digital mammograms (2D imaging); or DBT (3D imaging); or both, in a combination mode that quickly performs both the mammogram and the tomosynthesis scan while the breast is still compressed. PQRS 6045F: Fluoroscopic imaging is not utilized for breast tomosynthesis. TECHNICAL DOCUMENTATION: FINDING NUMBER: (1) ASSESSMENT: (1) JOB ID: [id number] [employer]- All Rights Reserved Reading location - IP/workstation name: [facility]
== END ==
LOC: WI 08:37
PROVIDERS: ATTEND Internal Medicine Geriatric Medicine
DX: Z12.31 Encounter for screening mammogram for malignant neoplasm of breast (principal)
CPT/HCPCS: 77063; 77067

== ENCOUNTER → 2019-06-08 | Outpatient (CLI) | payer MEDICARE, OTHER ==
--- NOTE | 2019-06-09 16:59 | WOMENS IMAGING REPORT ---
EXAM DESCRIPTION: 3D SCREENING MAMMO BILAT COMPLETED DATE/TIME: 06/08/2019 11:29 am REASON FOR STUDY: Z12.31 ENCOUNTER FOR SCREENING MAMMOGRAM FOR MALIGNANT NEOPLASM OF BREAST Z12.31 ENCNTR SCREEN MAMMOGRAM FOR MALIGNANT NEOPLASM OF JOSE COMPARISON: 2013 to 2017 EXAM PARAMETERS: Views: Standard craniocaudal and mediolateral oblique views of each breast recorded using digital acquisition and breast tomosynthesis. Read with the assistance of CAD. .[facility] - [email or web address] Learning Support Services Director Version 9.2 LIMITATIONS: None. FINDINGS: No suspicious masses, suspicious calcifications or architectural distortion. No areas of c oncern. IMPRESSION: NEGATIVE MAMMOGRAM. BIRADS 1. BREAST DENSITY: b. There are scattered areas of fibroglandular density. BIRAD: ASSESSMENT: 1 NEGATIVE RECOMMENDATION: ROUTINE SCREENING COMMENT: The patient has been notified of the results by letter per MQSA requirements. Additional no tification policies are in place for contacting patient with suspicious or incomplete findings. Quality ID #225: The [employer] recommends an annual screening mammogram for women aged 40 years or over. This facility utilizes a reminder system to ensure that all patients receive reminder letters, and/or direct phone calls for appointments. This includes reminders for routine scr eening mammograms, diagnostic mammograms, or other Breast Imaging Interventions when appropriate. Th is patient will be placed in the appropriate reminder system. TECHNICAL DOCUMENTATION: FINDING NUMBER: (1) ASSESSMENT: (1) JOB ID: [id number] [employer]- All Rights Reserved Reading location - IP/workstation name: [email or web address]
== END ==
LOC: WI 11:04
PROVIDERS: ATTEND Internal Medicine Geriatric Medicine
DX: Z12.31 Encounter for screening mammogram for malignant neoplasm of breast (principal)
CPT/HCPCS: 77063; 77067

== ENCOUNTER 2019-08-27 18:20 | Emergency (ER) | payer MEDICARE, OTHER ==
[2019-08-27] MEDS ORDERED: TRAMADOL HCL 50 MG TABLET PO ONE (19:16)
--- NOTE | 2019-08-27 19:18 | ER Document Report ---
ED Medical Screen (RME) - General Chief Complaint: Leg Pain Stated Complaint: LEFT LEG PAIN Time Seen by Provider: 08/27/19 19:09 Primary Care Provider: CHRISSIE DEMPSEY MD [Primary Care Provider] - Follow up as needed Mode of Arrival: Wheelchair Notes: Patient presents complaining of left leg pain. Patient states that she was getting dressed and developed left hip pain. Patient denies any fall or injury. Patient states that she is unable to bear any weight to the left lower extremity. Patient does complain of some pain and swelling to the left lower extremity. Patient states that she has had some muscle cramps recently and suspected that that is what was causing her pain symptoms. I have greeted and performed a rapid initial assessment of this patient. A comprehensive ED assessment and evaluation of the patient, analysis of test results and completion of the medical decision making process will be conducted by additional ED providers. TRAVEL OUTSIDE OF THE [place] IN LAST 30 DAYS: No - Related Data Allergies/Adverse Reactions: ibandronate sodium [From Boniva] Allergy (Severe, Verified 06/30/13 08:37) Seizures prochlorperazine edisylate [From Compazine] Allergy (Intermediate, Verified 06/30/13 08:37) delerious, altered mental status prochlorperazine maleate [From Compazine] Allergy (Intermediate, Verified 06/30/13 08:37) delerious, altered mental status Sulfa (Sulfonamide Antibiotics) Allergy (Mild, Verified 06/30/13 08:37) Hives Past Medical History - Past Medical History Cardiac Medical History: Reports: Hx Coronary Artery Disease - HIGH CHOLESTEROL, Hx Hypertension Denies: Hx Heart Attack Pulmonary Medical History: Reports: Hx Pneumonia Denies: Hx Asthma, Hx Bronchitis, Hx COPD Neurological Medical History: Reports: Hx Seizures - reaction from taking boniva. Denies: Hx Cerebrovascular Accident Endocrine Medical History: Reports: Hx Hypothyroidism Renal/ Medical History: Denies: Hx Peritoneal Dialysis Musculoskeltal Medical History: Denies Hx Arthritis Past Surgical History: Reports: Hx Hysterectomy, Hx Thyroid Surgery - Thyroidectomy. Denies: Hx Pacemaker - Immunizations Hx Diphtheria, Pertussis, Tetanus Vaccination: Yes Physical Exam - Vital signs Vitals: Temp Pulse Resp BP Pulse Ox 98.7 F 80 24 H 143/62 H 100 08/27/19 18:35 08/27/19 18:35 08/27/19 18:35 08/27/19 18:35 08/27/19 18:35 - General General appearance: Appears well, Alert Notes: Tenderness to left calf and popliteal area, left hip joint tenderness Course - Vital Signs Vital signs: Temp Pulse Resp BP Pulse Ox 98.7 F 80 24 H 143/62 H 100 08/27/19 18:35 08/27/19 18:35 08/27/19 18:35 08/27/19 18:35 08/27/19 18:35 Doctor's Discharge - Discharge Referrals: CHRISSIE DEMPSEY MD [Primary Care Provider] - Follow up as needed
--- NOTE | 2019-08-27 20:13 | RADIOLOGY REPORT (SQ) ---
EXAM DESCRIPTION: CLINICAL HISTORY: 69 years Female L hip pain COMPARISON: None. TECHNIQUE: Single AP view of the pelvis and left hip single view. FINDINGS: No acute fractures or dislocations are identified. No osseous destructive lesions. IMPRESSION: No acute fracture is identified. CT or MRI could be obtained to better evaluate the hips if there is continued clinical concern.
[2019-08-27 20:44] LABS: ABSOLUTE EOSINOPHILS # (AUTO) 0.2 10^3/uL (0.0-0.6); ABSOLUTE LYMPHOCYTES (AUTO) 1.6 10^3/uL (0.5-4.7); ABSOLUTE MONOCYTES (AUTO) 0.5 10^3/uL (0.1-1.4); ABSOLUTE NEUT (AUTO) 2.9 10^3/uL (1.7-8.2); BASOPHILS % (AUTO) 0.9 % (0-2); HEMATOCRIT 28.9 % (36.0-47.0); HEMOGLOBIN 9.6 g/dL (12.0-15.5); LYMPHOCYTES % (AUTO) 30.1 % (13-45); MEAN CORPUSCULAR HEMOGLOBIN 29.6 pg (27.0-33.4); MEAN CORPUSCULAR HGB CONC 33.2 g/dL (32.0-36.0); MEAN CORPUSCULAR VOLUME 89 fl (80-97); MONOCYTES % (AUTO) 8.8 % (3-13); PLATELET COUNT 411 10^3/uL (150-450); RED BLOOD COUNT 3.25 10^6/uL (3.72-5.28); RED CELL DISTRIBUTION WIDTH 17.2 % (11.5-14.0); SEGMENTED NEUTROPHILS % (AUTO) 56.2 % (42-78); TOTAL CELLS COUNTED % (AUTO) 100 %; WHITE BLOOD COUNT 5.2 10^3/uL (4.0-10.5)
[2019-08-27 21:07] LABS: ANION GAP 8 (5-19); BLOOD UREA NITROGEN 20 mg/dL (7-20); CALCIUM 9.6 mg/dL (8.4-10.2); CARBON DIOXIDE 29 mmol/L (22-30); CHLORIDE 103 mmol/L (98-107); CREATINE KINASE 182 U/L (30-135); GLUCOSE 115 mg/dL (75-110); POTASSIUM 4.5 mmol/L (3.6-5.0)
--- NOTE | 2019-08-27 22:45 | ER Document Report ---
Doctor's Note Notes: 08/27/19 22:43 Approached by filling technician about Doppler results for this patient. PAtient is still pending bed and has gone through provider and triage process. filling technician states that the patient has a superficial clot in her lower leg and the vasculature is very dilated. She is unsure if the clot connects to the deep venous system. I have asked her to call Dr. Becker who is the physician reading the doppler studies and have him read it officially.
--- NOTE | 2019-08-27 23:10 | VASCULAR PRELIM REPORT ---
Provider Note Provider Note: Positive for limited DVT in left Gastrocnemious vein. Normal study otherwise in left lower extremity, right Common Femoral vein.
[2019-08-28] MEDS ORDERED: TRAMADOL HCL 50 MG TABLET PO ONE (01:00)
[2019-08-28] MEDS ORDERED: OXYCODONE-ACETAMINOPHEN 5-325 MG TABLET PO ONE (02:33)
[2019-08-28] MEDS: RIVAROXABAN 15 MG TABLET PO ONE ×2 (03:26→04:32)
[2019-08-28] MEDS ORDERED: HYDROCODONE/ACETAMINOPHEN 5-325 MG TABLET PO ONE (03:31)
[2019-08-28] MEDS ORDERED: ONDANSETRON 4 MG TAB.RAPDIS PO ONE (03:32)
[2019-08-28 04:06] LABS: PROTHROMBIN TIME 14.2 SEC (11.4-15.4)
[2019-08-28 04:07] LABS: PARTIAL THROMBOPLASTIN TIME 28.1 SEC (23.5-35.8)
[2019-08-28] MEDS ORDERED: RIVAROXABAN 15 MG TABLET ONE (04:21)
--- NOTE | 2019-08-28 04:47 | ER Document Report ---
Entered by KLEVER MENDOZA SCRIBE 08/28/19 0222 Acting as scribe for:JOSE M BARAHONA MD ED Extremity Problem, Lower - General Chief Complaint: Leg Pain Stated Complaint: LEFT LEG PAIN Time Seen by Provider: 08/27/19 19:09 Primary Care Provider: CHRISSIE DEMPSEY MD [Primary Care Provider] - Follow up as needed Mode of Arrival: Wheelchair Information source: Patient, Relative - Spouse Notes: 69-year-old female presents to the emergency department with LLE pain that began about 10 hours ago. Patient describes the pain as sharp and radiating from her hip to her knee. Patient states that she went to take a bath and as she was putting her clothes back on after, she felt a sharp pain. After this initial pain, patient stated that she has been unable to put pressure on the LLE. Patient's states that he has had to help her move. Patient remarks that this is not her usual cramping in her legs and that it has been constant. P atient denies trauma to leg or black tarry stool. TRAVEL OUTSIDE OF THE [place] IN LAST 30 DAYS: No - Related Data Allergies/Adverse Reactions: ibandronate sodium [From Boniva] Allergy (Severe, Verified 06/30/13 08:37) Seizures prochlorperazine edisylate [From Compazine] Allergy (Intermediate, Verified 06/30/13 08:37) delerious, altered mental status prochlorperazine maleate [From Compazine] Allergy (Intermediate, Verified 06/30 08:37) delerious, altered mental status Sulfa (Sulfonamide Antibiotics) Allergy (Mild, Verified 06/30/13 08:37) Hives Past Medical History - General Information source: Patient, Relative - Spouse - Social History Smoking Status: Never Smoker Cigarette use (# per day): No Chew tobacco use (# tins/day): No Lives with: Spouse/Significant other Family History: Reviewed & Not Pertinent Patient has suicidal ideation: No Patient has homicidal ideation: No - Past Medical History Cardiac Medical History: Reports: Hx Hypertension Pulmonary Medical History: Reports: Hx Pneumonia Neurological Medical History: Reports: Hx Seizures - reaction from taking boniva Endocrine Medical History: Reports: Hx Hypothyroidism GI Medical History: Reports: Hx Gastroesophageal Reflux Disease, Hx Ulcer - Upper GI and Lower GI with no bleeding Past Surgical History: Reports: Hx Hysterectomy, Hx Thyroid Surgery - Thyroidectomy - Immunizations Hx Diphtheria, Pertussis, Tetanus Vaccination: Yes Review of Systems - Review of Systems Constitutional: No symptoms reported EENT: No symptoms reported Cardiovascular: No symptoms reported Respiratory: No symptoms reported Gastrointestinal: See HPI. denies: Black stools Genitourinary: No symptoms reported Female Genitourinary: No symptoms reported Musculoskeletal: See HPI, Other - LLE pain Skin: No symptoms reported Hematologic/Lymphatic: No symptoms reported Neurological/Psychological: No symptoms reported -: Yes All other systems reviewed and negative Physical Exam - Vital signs Vitals: Temp Pulse Resp BP Pulse Ox 98.7 F 80 24 H 143/62 H 100 08/27/19 18:35 08/27/19 18:35 08/27/19 18:35 08/27/19 18:35 08/27/19 18:35 - Notes Notes: Physical Exam: General: Alert, appears well. HEENT: Normocephalic. Atraumatic. PERRL. Extraocular movements intact. Oropharynx clear. Neck: Supple. Non-tender. Respiratory: No respiratory distress. Clear and equal breath sounds bilaterally. Cardiovascular: Regular rate and rhythm. Abdominal: Normal Inspection. Non-tender. No distension. Normal Bowel Sounds. Back: No gross abnormalities. Extremities: Upper extremities: Normal inspection. Normal ROM. Lower extremities: No edema. Restricted ROM in LLE due to pain in knee and hip. Neurological: Normal cognition. AAOx4. Normal speech. Psychological: Normal affect. Normal Mood. Skin: Warm. Dry. Normal color. Course - Vital Signs Vital signs: Temp Pulse Resp BP Pulse Ox 98.3 F 62 16 155/90 H 100 08/28/19 00:10 08/28/19 00:10 08/28/19 03:16 08/28/19 03:16 08/28/19 03:16 - Laboratory Result Diagrams: 08/27/19 20:28 08/27/19 20:28 Laboratory results interpreted by me: 08/27/19 08/27/19 20:28 20:28 RBC 3.25 L Hgb 9.6 L Hct 28.9 L RDW 17.2 H Creatinine 1.27 H Est GFR ( Amer) 50 L Est GFR (MDRD) Non-Af 42 L Glucose 115 H Creatine Kinase 182 H - Diagnostic Test Radiology reviewed: Image reviewed, Reports reviewed Radiology results interpreted by me: 08/28/19 04:44 Ultrasound of the left lower leg shows a deep vein thrombosis noted in the gastrocnemius vein. Plain film x-rays of left hip did not disclose any acute fracture or dislocation or arthritic changes. Discharge - Discharge Clinical Impression: Deep vein thrombosis (DVT) of left lower extremity, Left hip pain Condition: Good Disposition: HOME, SELF-CARE Additional Instructions: You have deep vein thrombosis in your left leg. You also complains of left hip pain which your x-rays does not show any acute process. If you continue to have left hip pain we recommend he have a CT scan ordered by your primary care physician. You have been started on Xarelto which is an anticoagulant to assist in slowing down the clot that you have in your left leg. This medicine is to be taken over a period of time which you have been started on the initial dosing of Xarelto. For the first 21 days you to take medications twice a day then on day 22 forward you take 2 tablets once a day it is important to take these medicines at the same time each day with meals. Your doctor will continue your prescriptions for Xarelto for the time. That you that is required to get control over DVT and lower extremities. Continue your same other medications as you are doing. If if further problems do not hesitate to come in to the emergency department. Please be aware that Xarelto can cause bleeding problems. As you eat as you know we were careful to discuss with you whether or not you had any active bleeding problems at this time. You reported that he did have an nonbleeding ulcer in his stomach that you were aware of. It is important that you do not take any nonsteroidal anti-inflammatory drugs or aspirin or BC powder while taking Xarelto. If there is any bleeding problem you will need to come to the emergency room on emergency basis for evaluation. You may also noticed some increased bruising that may occur if you have any contusions or accidents that cause physical harm to your body.. Prescriptions: Hydrocodone/Acetaminophen [B[place]ond 5-325 mg Tabs (6 Tab/ER Disp)] 1 tab PO Q6H PRN #6 dspk PRN Reason: Rivaroxaban [Xarelto 10 mg Tablet] 2 tab PO DAILY #60 tablet Rivaroxaban [Xarelto 15 mg Tablet] 15 mg PO BID 21 Days #42 tablet Forms: Return to Work Referrals: CHRISSIE DEMPSEY MD [Primary Care Provider] - Follow up as needed I personally performed the services described in the documentation, reviewed and edited the documentation which was dictated to the scribe in my presence, and it accurately records my words and actions.
[2019-08-28] MEDS ORDERED: HYDROCODONE/ACETAMINOPHEN 5-325 MG (6 TAB/ER DISP) PO PRN (05:03)
[2019-08-28 05:09] VITALS: BP 139/58
--- NOTE | 2019-08-28 09:44 | XCELERA REPORT ---
[address] [address] Lower Extremity Venous Evaluation Procedure: Color flow and duplex imaging of the veins of the left lower extremity as well as the right Common Femoral vein. Right Sided Venous Evaluation The right common femoral vein is fully compressible. Spontaneous and phasic flow is present in the right common femoral vein. Left Sided Venous Evaluation Echogenic, non compressible Gastrocnemius vein, with no Colour flow. Otherwise normal veins with filling wall to wall, compression and augmentation as well as Colour flow down to the infrageniculate veins. Critical Findings Discussed with Steff Dior. Interpretation Summary Acute DVT in the left lower extremity, limited to the Gastrocnemius vein. Name: HANNAH SOLOMON Age: 69 yrs Gender: Female : 1950 Patient Status: Preadmit Patient Location: ER Study Date: 08/27/2019 09:53 PM Reason For Study: LLE pain Ordering Physician: KIM RAMEY Performed By: Gale Malloy : KIM RAMEY > Yoan Becker
== END 2019-08-28 05:10 | disposition home or self-care (01) ==
LOC: ER 18:20
DX: I82.402 Acute embolism and thrombosis of unspecified deep veins of left lower extremity (principal); M25.552 Pain in left hip; M79.605 Pain in left leg; M25.562 Pain in left knee; Z88.8 Allergy status to other drugs, medicaments and biological substances; I10 Essential (primary) hypertension
CPT/HCPCS: 99284; 36415; 82550; 85025; 85610; 85730; 80048; 93971 ×2; 73502; A9270 ×5; S0119

== ENCOUNTER → 2019-08-31 | Outpatient (CLI) | payer MEDICARE, OTHER | LOC: OD 12:15 | PROVIDERS: ATTEND Internal Medicine Geriatric Medicine | DX: I82.409 Acute embolism and thrombosis of unspecified deep veins of unspecified lower extremity (principal) | CPT/HCPCS: 36415; 85303; 85379; 85597; 85598; 85613; 85730; 85732; 86146; 86147; 86148; 86849 ==

== ENCOUNTER 2019-09-04 12:43 | Observation (INO) | payer MEDICARE, OTHER ==
[2019-09-04 16:56] LABS: ABSOLUTE EOSINOPHILS # (AUTO) 0.2 10^3/uL (0.0-0.6); ABSOLUTE LYMPHOCYTES (AUTO) 2.3 10^3/uL (0.5-4.7); ABSOLUTE MONOCYTES (AUTO) 0.4 10^3/uL (0.1-1.4); ABSOLUTE NEUT (AUTO) 2.7 10^3/uL (1.7-8.2); BASOPHILS % (AUTO) 0.8 % (0-2); EOSINOPHILS % (AUTO) 3.7 % (0-6); HEMATOCRIT 20.8 % (36.0-47.0); LYMPHOCYTES % (AUTO) 40.2 % (13-45); MEAN CORPUSCULAR HEMOGLOBIN 29.9 pg (27.0-33.4); MEAN CORPUSCULAR VOLUME 91 fl (80-97); MONOCYTES % (AUTO) 7.1 % (3-13); PLATELET COUNT 350 10^3/uL (150-450); RED CELL DISTRIBUTION WIDTH 17.6 % (11.5-14.0); SEGMENTED NEUTROPHILS % (AUTO) 48.2 % (42-78); TOTAL CELLS COUNTED % (AUTO) 100 %; WHITE BLOOD COUNT 5.6 10^3/uL (4.0-10.5)
[2019-09-04 16:57] LABS: HEMOGLOBIN 6.9 g/dL (12.0-15.5)
[2019-09-04 16:58] LABS: INTERNATIONAL RATION (INR) 1.73; PROTHROMBIN TIME 20.4 SEC (11.4-15.4)
[2019-09-04 16:59] LABS: PARTIAL THROMBOPLASTIN TIME 32.4 SEC (23.5-35.8)
[2019-09-04 17:09] LABS: ALBUMIN 3.2 g/dL (3.5-5.0); ALKALINE PHOSPHATASE 60 U/L (38-126); ASPARTATE AMINO TRANSFERASE 23 U/L (14-36); BILIRUBIN,TOTAL 0.3 mg/dL (0.2-1.3); BLOOD UREA NITROGEN 28 mg/dL (7-20); CALCIUM 8.8 mg/dL (8.4-10.2); CARBON DIOXIDE 29 mmol/L (22-30); GLUCOSE 122 mg/dL (75-110); TOTAL PROTEIN 6.5 g/dL (6.3-8.2)
[2019-09-04 17:22] LABS: CHLORIDE 104 mmol/L (98-107); POTASSIUM 4.2 mmol/L (3.6-5.0)
[2019-09-04] MEDS ORDERED: PANTOPRAZOLE SODIUM 40 MG VIAL IV ONE ×2 (17:22→18:00)
[2019-09-04 17:23] LABS: ANION GAP 6 (5-19)
[2019-09-04] MEDS ORDERED: ACETAMINOPHEN 325 MG TABLET PO PRN (17:24)
--- NOTE | 2019-09-04 17:57 | PDOC H&P ---
History of Present Illness Admission Date/PCP: 09/04/19 12:43 CHRISSIE DEMPSEY Patient complains of: Black tarry stool History of Present Illness: HANNAH SOLOMON is a 69 year old female patient known to my practice who presented to the office earlier today with complain about progressively worsen blood stool that has become tarry black over the last 4 days. she was recently diagnosed with isolated left leg DVT and started on Xarelto 20 mg p.o daily and Lansoprazole about one week ago. She reported associated left lower quadrant abdominal pain. She denied nausea or vomiting but experience loss of appetite. She reported associated discomfort in her rectal region due to frequent bowel movement. She denied any chest pain or difficulty with breathing. She denied taking any OTC NSAID. She is not on any iron supplementation.ID or alcohol ingestion. Her initial evaluation in the office revealed hemoglobin at 7.3 g/dl which was significantly lower than 9.6 g/dl couple of weeks ago. Patient reported recent EGD and Colonoscopy completed by Dr. Villarreal but result was nit available to me at the time of her office consultation. She was advised hospitalization on observation bed for blood transfusion and further evaluation and management of her acute GI bleeding. Past Medical History Cardiac Medical History: Reports: Coronary Artery Disease - HIGH CHOLESTEROL, Hypertension Denies: Myocardial Infarction Pulmonary Medical History: Reports: Pneumonia Denies: Asthma, Bronchitis, Chronic Obstructive Pulmonary Disease (COPD) Neurological Medical History: Reports: Seizures - reaction from taking boniva Endocrine Medical History: Reports: Hypothyroidism GI Medical History: Reports: Gastroesophageal Reflux Disease Musculoskeltal Medical History: Denies: Arthritis Hematology: Reports: Anemia Past Surgical History Past Surgical History: Reports: Hysterectomy Denies: Pacemaker Social History Smoking Status: Never Smoker - Advance Directive Resuscitation Status: Full Code Family History Family History: Reviewed & Not Pertinent Parental Family History Reviewed: Yes Children Family History Reviewed: Yes Sibling(s) Family History Reviewed.: Yes Medication/Allergy Home Medications: Acetaminophen [Tylenol 325 mg Tablet] 325 mg PO DAILYP PRN 09/04/19 Fluticasone Propionate [Flonase Nasal [place] 50 Mcg/[place] 16 gm] 1 spray NASL DAILY 09/04/19 Lansoprazole 30 mg PO DAILY 09/04/19 Levothyroxine Sodium [Synthroid 0.088 mg Tablet] 88 mcg PO DAILY 09/04/19 Valsartan/Hydrochlorothiazide [Valsartan-Hctz 320-12.5 mg Tab] 1 each PO DAILY 09/04/19 Allergies/Adverse Reactions: ibandronate sodium [From Boniva] Allergy (Severe, Verified 06/30/13 08:37) Seizures prochlorperazine edisylate [From Compazine] Allergy (Intermediate, Verified 06/30/13 08:37) delerious, altered mental status Sulfa (Sulfonamide Antibiotics) Allergy (Mild, Verified 06/30/13 08:37) Hives Review of Systems Constitutional: ABSENT: chills, fever(s), headache(s), weight gain, weight loss Eyes: ABSENT: visual disturbances Ears: ABSENT: hearing changes Cardiovascular: ABSENT: chest pain, dyspnea on exertion, edema, orthropnea, palpitations Respiratory: ABSENT: cough, hemoptysis Gastrointestinal: PRESENT: abdominal pain - LLQ region, melena. ABSENT: constipation, diarrhea, hematemesis, hematochezia, nausea, vomiting Genitourinary: ABSENT: dysuria, hematuria Musculoskeletal: ABSENT: joint swelling Integumentary: ABSENT: rash, wounds Neurological: ABSENT: abnormal gait, abnormal speech, confusion, dizziness, focal weakness, syncope Psychiatric: ABSENT: anxiety, depression, homidical ideation, suicidal ideation Endocrine: ABSENT: cold intolerance, heat intolerance, menstrual abnormalities, polydipsia, polyuria Hematologic/Lymphatic: ABSENT: easy bleeding, easy bruising, lymphadenopathy Physical Exam Vital Signs: Temp Pulse Resp BP Pulse Ox 98.6 F 71 16 133/52 H 100 09/04/19 15:28 09/04/19 15:28 09/04/19 15:28 09/04/19 15:28 09/04/19 15:28 Intake & Output 09/03/19 09/04/19 09/05/19 06:59 06:59 06:59 Weight 74.7 kg General appearance: PRESENT: no acute distress, well-developed, well-nourished Head exam: PRESENT: atraumatic, normocephalic Eye exam: PRESENT: conjunctiva pink, EOMI, PERRLA. ABSENT: scleral icterus Ear exam: PRESENT: normal external ear exam Mouth exam: PRESENT: moist, tongue midline Teeth exam: PRESENT: edentulous - dentures in use Neck exam: PRESENT: full ROM. ABSENT: carotid bruit, JVD, lymphadenopathy, thyromegaly Respiratory exam: PRESENT: clear to auscultation [place] Cardiovascular exam: PRESENT: RRR, +S1, +S2. ABSENT: diastolic murmur, rubs, systolic murmur Pulses: PRESENT: normal dorsalis pedis pul, +2 pedal pulses bilateral Vascular exam: PRESENT: normal capillary refill, pallor GI/Abdominal exam: PRESENT: normal bowel sounds, soft, tenderness - LLQ region to deep palpation. ABSENT: distended, guarding, mass, organolmegaly, rebound Rectal exam: PRESENT: deferred Extremities exam: ABSENT: pedal edema Neurological exam: PRESENT: alert, awake, oriented to person, oriented to place, oriented to time, oriented to situation, CN II-XII grossly intact. ABSENT: motor sensory deficit Psychiatric exam: PRESENT: appropriate affect, normal mood. ABSENT: homicidal ideation, suicidal ideation Skin exam: PRESENT: dry, intact, warm. ABSENT: cyanosis, rash Results Laboratory Results: 09/04/19 16:02 09/04/19 16:02 09/04/19 09/04/19 16:02 16:02 WBC 5.6 RBC 2.30 L Hgb 6.9 L Hct 20.8 L MCV 91 MCH 29.9 MCHC 33.0 RDW 17.6 H Plt Count 350 Seg Neutrophils % 48.2 Sodium 138.6 Potassium 4.2 Chloride 104 Carbon Dioxide 29 Anion Gap 6 BUN 28 H Creatinine 1.20 Est GFR ( Amer) 54 L Glucose 122 H Calcium 8.8 Total Bilirubin 0.3 AST 23 Alkaline Phosphatase 60 Total Protein 6.5 Albumin 3.2 L Assessment & Plan - Diagnosis (1) Acute GI bleeding Is this a current diagnosis for this admission?: Yes Plan: See admitting attending physician for details about care plan. (2) Deep vein thrombosis (DVT) of left lower extremity Qualifiers: Affected thrombotic vein of extremity: calf muscle vein Chronicity: acute Qualified Code(s): I82.462 - Acute embolism and thrombosis of left calf muscular vein Is this a current diagnosis for this admission?: Yes Plan: See admitting attending physician for details about care plan. (3) HTN (hypertension) Qualifiers: Hypertension type: essential hypertension Qualified Code(s): I10 - Essential (primary) hypertension Is this a current diagnosis for this admission?: Yes Plan: See admitting attending physician for details about care plan. (4) HLD (hyperlipidemia) Qualifiers: Hyperlipidemia type: unspecified Qualified Code(s): E78.5 - Hyperlipidemia, unspecified Is this a current diagnosis for this admission?: Yes Plan: See admitting attending physician for details about care plan. (5) Hypothyroidism Qualifiers: Hypothyroidism type: unspecified Qualified Code(s): E03.9 - Hypothyroidism, unspecified Is this a current diagnosis for this admission?: Yes Plan: See admitting attending physician for details about care plan. (6) Vitamin D deficiency Is this a current diagnosis for this admission?: Yes Plan: See admitting attending physician for details about care plan. (7) Seasonal allergic rhinitis Qualifiers: Allergic rhinitis trigger: unspecified Qualified Code(s): J30.2 - Other seasonal allergic rhinitis Is this a current diagnosis for this admission?: Yes Plan: See admitting attending physician for details about care plan. (8) Osteoarthritis involving multiple joints on both sides of body Is this a current diagnosis for this admission?: Yes Plan: See admitting attending physician for details about care plan. - Time Time Spent: 50 to 70 Minutes Medications reviewed and adjusted accordingly: Yes Anticipated discharge: Home Within: within 48 hours - Inpatient Certification Based on my medical assessment, after consideration of the patient's comorbidities, presenting symptoms, or acuity I expect that the services needed warrant INPATIENT care.: Yes I certify that my determination is in accordance with my understanding of Medicare's requirements for reasonable and necessary INPATIENT services [42 CFR 412.3e].: Yes Medical Necessity: Significant Comorbidiites Make Outpatient Treatment Too Risky, Need Close Monitoring Due to Risk of Patient Decompensation, Need For IV Fluids, Need For Continuous Telemetry Monitoring, Risk of Complication if Not Cared For in Hospital, Risk of Diagnosis Which Will Require Inpatient Eval/Care/Monitoring Post Hospital Care: D/C Director Emergency Documentation - Plan Summary Plan Summary: See admitting attending physician for details about care plan.
[2019-09-04] MEDS ORDERED: PANTOPRAZOLE SODIUM 40 MG VIAL IV SCH (18:00)
[2019-09-04] MEDS: PANTOPRAZOLE SODIUM 40 MG VIAL IV SCH (21:32)
[2019-09-05 05:26] LABS: ABSOLUTE EOSINOPHILS # (AUTO) 0.2 10^3/uL (0.0-0.6); ABSOLUTE LYMPHOCYTES (AUTO) 2.2 10^3/uL (0.5-4.7); ABSOLUTE MONOCYTES (AUTO) 0.4 10^3/uL (0.1-1.4); ABSOLUTE NEUT (AUTO) 2.9 10^3/uL (1.7-8.2); BASOPHILS % (AUTO) 0.8 % (0-2); EOSINOPHILS % (AUTO) 4.3 % (0-6); HEMATOCRIT 27.9 % (36.0-47.0); LYMPHOCYTES % (AUTO) 37.9 % (13-45); MEAN CORPUSCULAR HEMOGLOBIN 29.8 pg (27.0-33.4); MEAN CORPUSCULAR HGB CONC 33.9 g/dL (32.0-36.0); MEAN CORPUSCULAR VOLUME 88 fl (80-97); MONOCYTES % (AUTO) 7.4 % (3-13); PLATELET COUNT 294 10^3/uL (150-450); RED BLOOD COUNT 3.17 10^6/uL (3.72-5.28); RED CELL DISTRIBUTION WIDTH 16.2 % (11.5-14.0); SEGMENTED NEUTROPHILS % (AUTO) 49.6 % (42-78); TOTAL CELLS COUNTED % (AUTO) 100 %; WHITE BLOOD COUNT 5.8 10^3/uL (4.0-10.5)
[2019-09-05 05:36] LABS: HEMOGLOBIN 9.5 g/dL (12.0-15.5)
[2019-09-05 05:37] LABS: ANION GAP 6 (5-19); BLOOD UREA NITROGEN 25 mg/dL (7-20); CALCIUM 8.5 mg/dL (8.4-10.2); CARBON DIOXIDE 26 mmol/L (22-30); CHLORIDE 108 mmol/L (98-107); GLUCOSE 126 mg/dL (75-110); POTASSIUM 4.4 mmol/L (3.6-5.0)
[2019-09-05] MEDS: LEVOTHYROXINE SODIUM 0.088 MG TABLET PO SCH (08:30)
--- NOTE | 2019-09-05 08:33 | PDOC PROGRESS REPORT ---
Subjective Progress Note for:: 09/05/19 Subjective:: Patient continue to express left lower quadrant discomfort from excess gas. No bowel movement since admission, nausea or vomiting. No chest pain or difficulty with breathing. Post transfusion with 2 units PRBC since admission. No fever or chills. Reason For Visit: ACUTE GI BLEED WITH SYMPTOMATIC ANEMIALEFT LEG DVT Physical Exam Vital Signs: Temp Pulse Resp BP Pulse Ox 98.3 F 63 18 113/50 L 100 09/05/19 02:35 09/05/19 02:35 09/05/19 02:35 09/05/19 02:35 09/05/19 02:35 Intake & Output 09/04/19 09/05/19 09/06/19 06:59 06:59 06:59 Intake Total 1746 Balance 1746 Weight 74.7 kg General appearance: PRESENT: no acute distress, well-developed, well-nourished Head exam: PRESENT: atraumatic, normocephalic Eye exam: PRESENT: conjunctiva pink, EOMI, PERRLA. ABSENT: scleral icterus Ear exam: PRESENT: normal external ear exam Mouth exam: PRESENT: moist, tongue midline Neck exam: PRESENT: full ROM. ABSENT: carotid bruit, JVD, lymphadenopathy, thyromegaly Respiratory exam: PRESENT: clear to auscultation [place] Cardiovascular exam: PRESENT: RRR, +S1, +S2. ABSENT: diastolic murmur, rubs, systolic murmur Pulses: PRESENT: normal dorsalis pedis pul, +2 pedal pulses bilateral Vascular exam: PRESENT: normal capillary refill. ABSENT: pallor GI/Abdominal exam: PRESENT: normal bowel sounds, soft, tenderness - LLQ to deep palpation.. ABSENT: distended, guarding, mass, organolmegaly, rebound Extremities exam: ABSENT: pedal edema Musculoskeletal exam: PRESENT: normal inspection Neurological exam: PRESENT: alert, awake, oriented to person, oriented to place, oriented to time, oriented to situation, CN II-XII grossly intact. ABSENT: motor sensory deficit Psychiatric exam: PRESENT: appropriate affect, normal mood. ABSENT: homicidal ideation, suicidal ideation Skin exam: PRESENT: dry, intact, warm. ABSENT: cyanosis, rash Results Laboratory Results: 09/05/19 04:24 09/05/19 04:24 09/04/19 09/04/19 09/04/19 16:02 16:02 16:02 WBC 5.6 RBC 2.30 L Hgb 6.9 L Hct 20.8 L MCV 91 MCH 29.9 MCHC 33.0 RDW 17.6 H Plt Count 350 Seg Neutrophils % 48.2 Sodium 138.6 Potassium 4.2 Chloride 104 Carbon Dioxide 29 Anion Gap 6 BUN 28 H Creatinine 1.20 Est GFR ( Amer) 54 L Glucose 122 H Calcium 8.8 Total Bilirubin 0.3 AST 23 Alkaline Phosphatase 60 Total Protein 6.5 Albumin 3.2 L Blood Type A POSITIVE Antibody Screen NEGATIVE 09/05/19 09/05/19 04:24 04:24 WBC 5.8 RBC 3.17 L Hgb 9.5 L D Hct 27.9 L MCV 88 MCH 29.8 MCHC 33.9 RDW 16.2 H Plt Count 294 Seg Neutrophils % 49.6 Sodium 139.5 Potassium 4.4 Chloride 108 H Carbon Dioxide 26 Anion Gap 6 BUN 25 H Creatinine 1.18 Est GFR ( Amer) 55 L Glucose 126 H Calcium 8.5 Total Bilirubin AST Alkaline Phosphatase Total Protein Albumin Blood Type Antibody Screen Assessment & Plan - Diagnosis (1) Acute GI bleeding Is this a current diagnosis for this admission?: Yes (2) Deep vein thrombosis (DVT) of left lower extremity Qualifiers: Affected thrombotic vein of extremity: calf muscle vein Chronicity: acute Qualified Code(s): I82.462 - Acute embolism and thrombosis of left calf muscular vein Is this a current diagnosis for this admission?: Yes (3) HTN (hypertension) Qualifiers: Hypertension type: essential hypertension Qualified Code(s): I10 - Essential (primary) hypertension Is this a current diagnosis for this admission?: Yes (4) HLD (hyperlipidemia) Qualifiers: Hyperlipidemia type: unspecified Qualified Code(s): E78.5 - Hyperlipidemia, unspecified Is this a current diagnosis for this admission?: Yes (5) Hypothyroidism Qualifiers: Hypothyroidism type: unspecified Qualified Code(s): E03.9 - Hypothyroidism, unspecified Is this a current diagnosis for this admission?: Yes (6) Vitamin D deficiency Is this a current diagnosis for this admission?: Yes (7) Seasonal allergic rhinitis Qualifiers: Allergic rhinitis trigger: unspecified Qualified Code(s): J30.2 - Other seasonal allergic rhinitis Is this a current diagnosis for this admission?: Yes (8) Osteoarthritis involving multiple joints on both sides of body Is this a current diagnosis for this admission?: Yes - Time Time Spent with patient: 25-34 minutes Level of Care: MEDICAL Medications reviewed and adjusted accordingly: Yes Anticipated discharge: Home Within: within 48 hours - Inpatient Certification Based on my medical assessment, after consideration of the patient's comorbidities, presenting symptoms, or acuity I expect that the services needed warrant INPATIENT care.: Yes I certify that my determination is in accordance with my understanding of Medicare's requirements for reasonable and necessary INPATIENT services [42 CFR 412.3e].: Yes Medical Necessity: Significant Comorbidiites Make Outpatient Treatment Too Risky, Need Close Monitoring Due to Risk of Patient Decompensation, Need For IV Fluids, Risk of Complication if Not Cared For in Hospital, Risk of Diagnosis Which Will Require Inpatient Eval/Care/Monitoring Post Hospital Care: D/C Old Testament Professor Documentation - Plan Summary Plan Summary: Maintain on IV Protonix and IV fluid support. Repeat CBC at 1600 HR. Obtain recent EGD and colonoscopy report from Dr. Villarreal's office. Continue all other current medication management.
[2019-09-05] MEDS: NORMAL SALINE 1000 ML 1,000 ML IV PRN ×2 (08:38→21:26)
[2019-09-05 09:07] LABS: ABSOLUTE RETICS # 0.076 10^6/uL (0.028-0.122); RETICULOCYTE COUNT (AUTO) 2.48 % (0.66-2.85)
[2019-09-05 09:12] LABS: IRON(TIBC) 90.9 ug/dL (37-170)
[2019-09-05] MEDS: VALSARTAN 160 MG TABLET PO SCH (09:32)
[2019-09-05] MEDS: PANTOPRAZOLE SODIUM 40 MG VIAL IV SCH ×2 (09:33→21:26)
[2019-09-05] MEDS: HYDROCHLOROTHIAZIDE 12.5 MG TABLET PO SCH (09:33)
[2019-09-05] MEDS: FLUTICASONE NASAL SPRAY 50 MCG/SPRY 120 SPRAY/16 GM NASL SCH (09:33)
[2019-09-05 09:49] LABS: FERRITIN 6.78 ng/mL (11.1-264.0)
[2019-09-05] MEDS ORDERED: (PENDING PHARMACY ID) (Valsartan/Hydrochlorothiazide [Valsartan-Hctz 320-12.5 Mg Tab] 1 EA PO SCH (10:00)
[2019-09-05 17:35] LABS: HEMATOCRIT 27.9 % (36.0-47.0); HEMOGLOBIN 9.7 g/dL (12.0-15.5); MEAN CORPUSCULAR HEMOGLOBIN 30.4 pg (27.0-33.4); MEAN CORPUSCULAR HGB CONC 34.6 g/dL (32.0-36.0); MEAN CORPUSCULAR VOLUME 88 fl (80-97); PLATELET COUNT 319 10^3/uL (150-450); RED BLOOD COUNT 3.18 10^6/uL (3.72-5.28); RED CELL DISTRIBUTION WIDTH 16.5 % (11.5-14.0); WHITE BLOOD COUNT 5.5 10^3/uL (4.0-10.5)
[2019-09-06 05:30] LABS: ABSOLUTE EOSINOPHILS # (AUTO) 0.3 10^3/uL (0.0-0.6); ABSOLUTE LYMPHOCYTES (AUTO) 2.2 10^3/uL (0.5-4.7); ABSOLUTE MONOCYTES (AUTO) 0.4 10^3/uL (0.1-1.4); ABSOLUTE NEUT (AUTO) 2.3 10^3/uL (1.7-8.2); BASOPHILS % (AUTO) 0.4 % (0-2); EOSINOPHILS % (AUTO) 5.6 % (0-6); HEMATOCRIT 27.2 % (36.0-47.0); HEMOGLOBIN 9.1 g/dL (12.0-15.5); LYMPHOCYTES % (AUTO) 42.1 % (13-45); MEAN CORPUSCULAR HEMOGLOBIN 29.7 pg (27.0-33.4); MEAN CORPUSCULAR HGB CONC 33.5 g/dL (32.0-36.0); MEAN CORPUSCULAR VOLUME 89 fl (80-97); MONOCYTES % (AUTO) 7.8 % (3-13); PLATELET COUNT 277 10^3/uL (150-450); RED BLOOD COUNT 3.07 10^6/uL (3.72-5.28); RED CELL DISTRIBUTION WIDTH 16.7 % (11.5-14.0); SEGMENTED NEUTROPHILS % (AUTO) 44.1 % (42-78); TOTAL CELLS COUNTED % (AUTO) 100 %; WHITE BLOOD COUNT 5.3 10^3/uL (4.0-10.5)
[2019-09-06 05:44] LABS: ANION GAP 6 (5-19); BLOOD UREA NITROGEN 18 mg/dL (7-20); CALCIUM 8.4 mg/dL (8.4-10.2); CARBON DIOXIDE 24 mmol/L (22-30); CHLORIDE 110 mmol/L (98-107); GLUCOSE 96 mg/dL (75-110); POTASSIUM 4.4 mmol/L (3.6-5.0)
[2019-09-06] MEDS: LEVOTHYROXINE SODIUM 0.088 MG TABLET PO SCH (07:59)
[2019-09-06] MEDS: NORMAL SALINE 1000 ML 1,000 ML IV PRN (07:59)
[2019-09-06] MEDS: VALSARTAN 160 MG TABLET PO SCH (10:10)
[2019-09-06] MEDS: PANTOPRAZOLE SODIUM 40 MG VIAL IV SCH (10:10)
[2019-09-06] MEDS: HYDROCHLOROTHIAZIDE 12.5 MG TABLET PO SCH (10:11)
[2019-09-06] MEDS: FLUTICASONE NASAL SPRAY 50 MCG/SPRY 120 SPRAY/16 GM NASL SCH (10:11)
--- NOTE | 2019-09-06 17:46 | PDOC DISCHARGE SUMMARY ---
Impression - Admit/DC Date/PCP Admission Date/Primary Care Provider: 09/04/19 12:43 CHRISSIE DEMPSEY Discharge Date: 09/06/19 - Discharge Diagnosis (1) Acute GI bleeding Is this a current diagnosis for this admission?: Yes (2) Deep vein thrombosis (DVT) of left lower extremity Is this a current diagnosis for this admission?: Yes (3) HTN (hypertension) Is this a current diagnosis for this admission?: Yes (4) HLD (hyperlipidemia) Is this a current diagnosis for this admission?: Yes (5) Hypothyroidism Is this a current diagnosis for this admission?: Yes (6) Vitamin D deficiency Is this a current diagnosis for this admission?: Yes (7) Seasonal allergic rhinitis Is this a current diagnosis for this admission?: Yes (8) Osteoarthritis involving multiple joints on both sides of body Is this a current diagnosis for this admission?: Yes - Assessment Summary: Patient was directly admitted from the office due to presentation with new onset tarry stool since she was started on Xarelto for left leg DVT management. Her initial evaluation revealed significant drop in her hemoglobin to 6-7 g/dl. She was admitted to telemetry observational bed and transfused 2 units PRBC. Her hemoglobin post transfusion remain above 9g/dl at the time of her discharge. Her occult stool evaluation was positive for blood. Her anemia workup indicate low ferritin level. She recently had EGD and colonoscopy evaluation completed on 08/11/[address] Villarreal, significant for acute gastric ulcer without hemorrhage or perforation, gastric and duodenal angiodysplasia without bleeding and r/o Littlejohn's esophagus, copy of results on chart. She will be discharged home today with Ferrous sulfate 325 mg p.o bid and Vitamin C 500 mg p.o bid. She will follow up in the office as instructed upon discharge. - Additional Information Resuscitation Status: Full Code Referrals: CHRISSIE DEMPSEY MD [Primary Care Provider] - 09/18/19 10:00 am (Obtain CBC at office follow up visit.) Prescriptions: Ferrous Sulfate 325 mg PO BID #60 tablet. Ascorbic Acid [Vitamin C 500 mg Tablet] 500 mg PO BID #60 tablet Home Medications: Acetaminophen [Tylenol 325 mg Tablet] 325 mg PO DAILYP PRN 09/04/19 Fluticasone Propionate [Flonase Nasal [place] 50 Mcg/[place] 16 gm] 1 spray NASL DAILY 09/04/19 Lansoprazole 30 mg PO DAILY 09/04/19 Levothyroxine Sodium [Synthroid 0.088 mg Tablet] 88 mcg PO DAILY 09/04/19 Valsartan/Hydrochlorothiazide [Valsartan-Hctz 320-12.5 mg Tab] 1 each PO DAILY 09/04/19 Ascorbic Acid [Vitamin C 500 mg Tablet] 500 mg PO BID #60 tablet 09/06/19 Ferrous Sulfate 325 mg PO BID #60 tablet. 09/06/19 History of Present Illiness History of Present Illness: HANNAH SOLOMON is a 69 year old female patient known to my practice who presented to the office earlier today with complain about progressively worsen blood stool that has become tarry black over the last 4 days. she was recently diagnosed with isolated left leg DVT and started on Xarelto 20 mg p.o daily and Lansoprazole about one week ago. She reported associated left lower quadrant abdominal pain. She denied nausea or vomiting but experience loss of appetite. She reported associated discomfort in her rectal region due to frequent bowel movement. She denied any chest pain or difficulty with breathing. She denied taking any OTC NSAID. She is not on any iron supplementation. Illicit drug or alcohol ingestion. Her initial evaluation in the office revealed hemoglobin at 7.3 g/dl which was significantly lower than 9.6 g/dl couple of weeks ago. Patient reported recent EGD and Colonoscopy completed by Dr. Villarreal but result was nit available to me at the time of her office consultation. She was advised hospitalization on observation bed for blood transfusion and further evaluation and management of her acute gastrointestinal bleeding. Hospital Course Hospital Course: Patient was directly admitted from the office due to presentation with new onset tarry stool since she was started on Xarelto for left leg DVT management. Her initial evaluation revealed significant drop in her hemoglobin to 6-7 g/dl. She was admitted to telemetry observational bed and transfused 2 units PRBC. Her hemoglobin post transfusion remain above 9g/dl at the time of her discharge. Her occult stool evaluation was positive for blood. Her anemia workup indicate low ferritin level. She recently had EGD and colonoscopy evaluation completed on 08/11/[address] Villarreal, significant for acute gastric ulcer without hemorrhage or perforation, gastric and duodenal angiodysplasia without bleeding and r/o Littlejohn's esophagus, copy of results on chart. She will be discharged home today with Ferrous sulfate 325 mg p.o bid and Vitamin C 500 mg p.o bid. She will follow up in the office as instructed upon discharge. Physical Exam Vital Signs: Temp Pulse Resp BP Pulse Ox 98.1 F 68 24 H 131/55 H 100 09/06/19 12:50 09/06/19 14:00 09/06/19 12:50 09/06/19 12:50 09/06/19 12:50 Intake & Output 09/05/19 09/06/19 09/07/19 06:59 06:59 06:59 Intake Total 1746 1700 1800 Balance 1746 1700 1800 Weight 74.7 kg 79.1 kg General appearance: PRESENT: no acute distress, well-developed, well-nourished Head exam: PRESENT: atraumatic, normocephalic Eye exam: PRESENT: conjunctiva pink. ABSENT: palor, scleral icterus Ear exam: PRESENT: normal external ear exam Mouth exam: PRESENT: moist, tongue midline Neck exam: PRESENT: full ROM. Respiratory exam: PRESENT: clear to auscultation [place] Cardiovascular exam: PRESENT: RRR, +S1, +S2. ABSENT: diastolic murmur, rubs, systolic murmur GI/Abdominal exam: PRESENT: normal bowel sounds, soft ABSENT: distended, guarding, tenderness, mass, organomegaly, rebound Extremities exam: ABSENT: pedal edema Musculoskeletal exam: PRESENT: normal inspection Neurological exam: PRESENT: alert, awake, oriented to person, oriented to place, oriented to time, oriented to situation, CN II-XII grossly intact. ABSENT: motor sensory deficit Psychiatric exam: PRESENT: appropriate affect, normal mood. ABSENT: homicidal ideation, suicidal ideation Skin exam: PRESENT: dry, intact, warm. ABSENT: cyanosis, rash Results Laboratory Results: WBC 5.3 10^3/uL (4.0-10.5) 09/06/19 04:30 RBC 3.07 10^6/uL (3.72-5.28) L 09/06/19 04:30 Hgb 9.1 g/dL (12.0-15.5) L 09/06/19 04:30 Hct 27.2 % (36.0-47.0) L 09/06/19 04:30 MCV 89 fl (80-97) 09/06/19 04:30 MCH 29.7 pg (27.0-33.4) 09/06/19 04:30 MCHC 33.5 g/dL (32.0-36.0) 09/06/19 04:30 RDW 16.7 % (11.5-14.0) H 09/06/19 04:30 Plt Count 277 10^3/uL (150-450) 09/06/19 04:30 Lymph % (Auto) 42.1 % (13-45) 09/06/19 04:30 Lucas % (Auto) 7.8 % (3-13) 09/06/19 04:30 Eos % (Auto) 5.6 % (0-6) 09/06/19 04:30 Baso % (Auto) 0.4 % (0-2) 09/06/19 04:30 Reticulocyte # 0.076 10^6/uL (0.028-0.122) 09/05/19 04:24 Absolute Neuts (auto) 2.3 10^3/uL (1.7-8.2) 09/06/19 04:30 Absolute Lymphs (auto) 2.2 10^3/uL (0.5-4.7) 09/06/19 04:30 Absolute Monos (auto) 0.4 10^3/uL (0.1-1.4) 09/06/19 04:30 Absolute Eos (auto) 0.3 10^3/uL (0.0-0.6) 09/06/19 04:30 Absolute Basos (auto) 0.0 10^3/uL (0.0-0.2) 09/06/19 04:30 Seg Neutrophils % 44.1 % (42-78) 09/06/19 04:30 Retic Count (auto) 2.48 % (0.66-2.85) 09/05/19 04:24 PT 20.4 SEC (11.4-15.4) H 09/04/19 16:02 INR 1.73 09/04/19 16:02 APTT 32.4 SEC (23.5-35.8) 09/04/19 16:02 Sodium 139.7 mmol/L (137-145) 09/06/19 04:30 Potassium 4.4 mmol/L (3.6-5.0) 09/06/19 04:30 Chloride 110 mmol/L (98-107) H 09/06/19 04:30 Carbon Dioxide 24 mmol/L (22-30) 09/06/19 04:30 Anion Gap 6 (5-19) 09/06/19 04:30 BUN 18 mg/dL (7-20) 09/06/19 04:30 Creatinine 1.13 mg/dL (0.52-1.25) 09/06/19 04:30 Est GFR ( Amer) 58 (>60) L 09/06/19 04:30 Est GFR (MDRD) Non-Af 48 (>60) L 09/06/19 04:30 Glucose 96 mg/dL (75-110) 09/06/19 04:30 Calcium 8.4 mg/dL (8.4-10.2) 09/06/19 04:30 Iron 90.9 ug/dL (37-170) 09/05/19 04:24 TIBC 370 ug/dL (250-450) 09/05/19 04:24 % Saturation 25 % 09/05/19 04:24 Ferritin 6.78 ng/mL (11.1-264.0) L 09/05/19 04:24 Total Bilirubin 0.3 mg/dL (0.2-1.3) 09/04/19 16:02 Direct Bilirubin 0.0 mg/dL (0.0-0.4) 09/04/19 16:02 Neonat Total Bilirubin Not Reportable 09/04/19 16:02 Neonat Direct Bilirubin Not Reportable 09/04/19 16:02 Neonat Indirect Bili Not Reportable 09/04/19 16:02 AST 23 U/L (14-36) 09/04/19 16:02 ALT 15 U/L (<35) 09/04/19 16:02 Alkaline Phosphatase 60 U/L (38-126) 09/04/19 16:02 Total Protein 6.5 g/dL (6.3-8.2) 09/04/19 16:02 Albumin 3.2 g/dL (3.5-5.0) L 09/04/19 16:02 Vitamin B12 < 159.0 pg/mL (239-931) L 09/05/19 04:24 Folate 14.50 ng/mL (>2.76) 09/05/19 04:24 Stool Occult Blood POSITIVE (NEGATIVE) 09/06/19 07:14 Blood Type A POSITIVE 09/04/19 16:02 Antibody Screen NEGATIVE 09/04/19 16:02 Crossmatch See Detail 09/04/19 16:02 Plan Health Concerns: Possible chronic slow bleed. Need close monitoring with CBC. Hold Xarelto or such medication usage. Advised use of support hose and maintain mobility. Plan of Treatment: Maintain on oral iron and vitamin C supplementation. Support hose for isolated DVT management Goals: Improve her anemia status and avoid future bleeding. Time Spent: Less than 30 Minutes Stroke Is this a Stroke Patient?: No Acute Heart Failure - Is this a Heart Failure Patient?: No
[2019-09-06 18:28] VITALS: BP 137/58
== END 2019-09-06 18:54 | disposition home or self-care (01) ==
LOC: 4N 12:43
PROVIDERS: ADMIT Internal Medicine Geriatric Medicine; ATTEND Internal Medicine Geriatric Medicine
DX: K92.1 Melena (principal); I82.462 Acute embolism and thrombosis of left calf muscular vein; I10 Essential (primary) hypertension; E78.5 Hyperlipidemia, unspecified; E03.9 Hypothyroidism, unspecified; E55.9 Vitamin D deficiency, unspecified; J30.2 Other seasonal allergic rhinitis; M15.9 Polyosteoarthritis, unspecified; K31.819 Angiodysplasia of stomach and duodenum without bleeding; R63.0 Anorexia; R10.32 Left lower quadrant pain; I25.10 Atherosclerotic heart disease of native coronary artery without angina pectoris; K21.9 Gastro-esophageal reflux disease without esophagitis; R14.0 Abdominal distension (gaseous); E66.3 Overweight; K25.3 Acute gastric ulcer without hemorrhage or perforation; Z90.710 Acquired absence of both cervix and uterus; Z79.899 Other long term (current) drug therapy; Z79.01 Long term (current) use of anticoagulants
CPT/HCPCS: 86900; 86901; 36415 ×3; 36430; 86850; 82607; 82728; 82746; 83540; 83550; 85025 ×3; 85610; 85730; 82272 ×2; 85045; 80048 ×2; 80053; 86920; G0378 ×3; G0379; P9016 ×2; A9270 ×7; C9113 ×3; J7030 ×2

== ENCOUNTER → 2019-12-21 | Outpatient (CLI) | payer MEDICARE, OTHER ==
--- NOTE | 2019-12-21 12:33 | RADIOLOGY REPORT (SQ) ---
EXAM DESCRIPTION: VENOUS UNILATERAL LOWER IMAGES COMPLETED DATE/TIME: 12/21/2019 11:03 am REASON FOR STUDY: LLE I82.409 I82.409 ACUTE EMBOLISM AND THOMBOS UNSP DEEP VN UNSP LOWER E COMPARISON: None. TECHNIQUE: Dynamic and static delgadillo scale and color images acquired of the left leg venous system. Se lected spectral images acquired with additional compression and augmentation maneuvers. The contralat eral common femoral vein and saphenofemoral junction were also imaged. Images stored on PACS. LIMITATIONS: None. FINDINGS: COMMON FEMORAL: Normal phasicity, compression and augmentation. No visualized echogenic ma terial on delgadillo scale. No defects on color images. FEMORAL: Normal compression and augmentation. No visualized echogenic material on delgadillo scale. No defe cts on color images. POPLITEAL: Normal compression, augmentation. No visualized echogenic material on delgadillo scale. No defec ts on color images. CALF VESSELS: Normal compression, augmentation. No visualized echogenic material on delgadillo scale. No de fects on color images. GSV and SSV: Normal compression, augmentation. No visualized echogenic material on delgadillo scale. No def ects on color images. ANY DEEP VENOUS INSUFFICIENCY: Not evaluated. ANY EVIDENCE OF POPLITEAL CYST: No. OTHER: No other significant finding. CONTRALATERAL COMMON FEMORAL VEIN AND SAPHENOFEMORAL JUNCTION: Normal phasicity, compression and augmentation. No visualized echogenic material on delgadillo scale. No de fects on color images. IMPRESSION: NO EVIDENCE DVT OR SVT IN THE LEFT LEG. TECHNICAL DOCUMENTATION: JOB ID: [id number] [email or web address]- All Rights Reserved Reading location - IP/workstation name: [email or web address]
== END ==
LOC: SP 09:49
PROVIDERS: ATTEND Nurse Practitioner Adult Health
DX: I82.409 Acute embolism and thrombosis of unspecified deep veins of unspecified lower extremity (principal)
CPT/HCPCS: 93971

== ENCOUNTER → 2020-02-27 | Outpatient (CLI) | payer MEDICARE, OTHER ==
--- NOTE | 2020-02-27 12:08 | RADIOLOGY REPORT (SQ) ---
EXAM DESCRIPTION: U/S EXTREMITY NONVASCULAR LTD IMAGES COMPLETED DATE/TIME: 02/27/2020 11:32 am REASON FOR STUDY: PAIN IN LEFT KNEE (M25.562) M25.562 PAIN IN LEFT KNEE COMPARISON: None. TECHNIQUE: Static and real time delgadillo scale ultrasound Doppler spectral analysis, and color Doppler a cquired in the popliteal fossa on the left. LIMITATIONS: None. FINDINGS: SOFT TISSUES: Complex cyst measuring 2.2 x 2.3 x 4.3 cm. Internal echoes and multiple sep tations. OTHER:No other significant findings. IMPRESSION: COMPLEX SEPTATED POPLITEAL CYST WITH INTERNAL DEBRIS. TECHNICAL DOCUMENTATION: JOB ID: [id number] [employer]- All Rights Reserved Reading location - IP/workstation name: [email or web address]
== END ==
LOC: RAD 11:06
PROVIDERS: ATTEND Internal Medicine Geriatric Medicine
DX: M71.22 Synovial cyst of popliteal space [Baker], left knee (principal); M25.562 Pain in left knee
CPT/HCPCS: 76882

== ENCOUNTER 2020-04-18 06:14 | Observation (INO) | payer MEDICARE, OTHER ==
--- NOTE | 2020-04-18 07:23 | ER Document Report ---
ED Medical Screen (RME) - General Chief Complaint: Dizziness Stated Complaint: DIZZINESS/HYPOTENSION/NAUSEA/HEADACHE Time Seen by Provider: 04/18/20 06:56 Primary Care Provider: CHRISSIE DEMPSEY MD [Primary Care Provider] - Follow up as needed Mode of Arrival: Medic Information source: Patient Notes: 6-year-old female patient presenting to the emergency department chief complaint of dizziness. Patient reports she woke up this morning at 5 AM feeling dizzy, seeing spots and having ringing in her ears. Patient reports this is been ongoing intermittently over the last few weeks. 4 days ago she got dizzy, fell, struck her head and was taken via EMS to the [facility] emergency department. While she was there she was admitted to their service, had a full work-up where they found her to have a pulmonary embolism. Patient reports he started on Eliquis. Patient reports she did have a DVT back in the spring however she states that she was not on any anticoagulation. She reports that when she had a DVT they tried starting her on Xarelto however she hemorrhage so they had to stop it. She currently denies any chest pain, shortness of breath, recent fever, chills or any other symptoms. She reports she had a negative COVID-19 screen Wednesday at [facility]. Her primary care provider is Dr. Dempsey. Patient does report a generalized headache. She states this is similar to her usual headaches. She is requesting Tylenol. Patient is alert, oriented, answering all questions appropriately. She has no focal neurological deficits. She does have a cervical collar in place. She states when she fell on Wednesday she has some type of an injury to C5-C6 and was told to keep the collar in place until seen by neurosurgery next week. I have greeted and performed a rapid initial assessment of this patient. A comprehensive ED assessment and evaluation of the patient, analysis of test results and completion of the medical decision making process will be conducted by additional ED providers. I have specifically instructed the patient or family members with the patient to immediately return to any nursing staff should anything change in the patient's condition or with their chief complaint. TRAVEL OUTSIDE OF THE [place] IN LAST 30 DAYS: No - Related Data Allergies/Adverse Reactions: ibandronate sodium [From Boniva] Allergy (Severe, Verified 04/18/20 07:15) Seizures prochlorperazine edisylate [From Compazine] Allergy (Intermediate, Verified 04/18/20 07:15) delerious, altered mental status Sulfa (Sulfonamide Antibiotics) Allergy (Mild, Verified 04/18/20 07:15) Hives Past Medical History - Past Medical History Cardiac Medical History: Reports: Hx Coronary Artery Disease - HIGH CHOLESTEROL, Hx Hypertension Denies: Hx Heart Attack Pulmonary Medical History: Reports: Hx Pneumonia Denies: Hx Asthma, Hx Bronchitis, Hx COPD Neurological Medical History: Reports: Hx Seizures - reaction from taking boniva. Denies: Hx Cerebrovascular Accident Endocrine Medical History: Reports: Hx Hypothyroidism Renal/ Medical History: Denies: Hx Peritoneal Dialysis GI Medical History: Reports: Hx Gastroesophageal Reflux Disease, Hx Ulcer - Upper GI and Lower GI with no bleeding Musculoskeltal Medical History: Denies Hx Arthritis Past Surgical History: Reports: Hx Hysterectomy, Hx Thyroid Surgery - Thyroidectomy. Denies: Hx Pacemaker - Immunizations Hx Diphtheria, Pertussis, Tetanus Vaccination: Yes Physical Exam - Vital signs Vitals: Resp Pulse Ox 18 99 04/18/20 06:29 04/18/20 06:29 Course - Vital Signs Vital signs: Temp Pulse Resp BP Pulse Ox 97.7 F 23 H 121/55 L 98 04/18/20 06:30 04/18/20 06:30 04/18/20 06:30 04/18/20 06:30 Doctor's Discharge - Discharge Referrals: CHRISSIE DEMPSEY MD [Primary Care Provider] - Follow up as needed
[2020-04-18 07:29] LABS: ABSOLUTE EOSINOPHILS # (AUTO) 0.2 10^3/uL (0.0-0.6); ABSOLUTE LYMPHOCYTES (AUTO) 1.3 10^3/uL (0.5-4.7); ABSOLUTE MONOCYTES (AUTO) 0.4 10^3/uL (0.1-1.4); BASOPHILS % (AUTO) 0.9 % (0-2); EOSINOPHILS % (AUTO) 3.4 % (0-6); HEMATOCRIT 35.4 % (36.0-47.0); HEMOGLOBIN 12.1 g/dL (12.0-15.5); LYMPHOCYTES % (AUTO) 26.4 % (13-45); MEAN CORPUSCULAR HEMOGLOBIN 33.9 pg (27.0-33.4); MEAN CORPUSCULAR HGB CONC 34.1 g/dL (32.0-36.0); MEAN CORPUSCULAR VOLUME 99 fl (80-97); MONOCYTES % (AUTO) 8.8 % (3-13); RED BLOOD COUNT 3.56 10^6/uL (3.72-5.28); RED CELL DISTRIBUTION WIDTH 14.9 % (11.5-14.0); SEGMENTED NEUTROPHILS % (AUTO) 60.5 % (42-78); TOTAL CELLS COUNTED % (AUTO) 100 %; WHITE BLOOD COUNT 4.9 10^3/uL (4.0-10.5)
[2020-04-18 07:46] LABS: ALBUMIN 3.3 g/dL (3.5-5.0); ALKALINE PHOSPHATASE 60 U/L (38-126); ANION GAP 7 (5-19); ASPARTATE AMINO TRANSFERASE 33 U/L (14-36); BILIRUBIN,DIRECT 0.3 mg/dL (0.0-0.4); BILIRUBIN,TOTAL 0.6 mg/dL (0.2-1.3); BLOOD UREA NITROGEN 34 mg/dL (7-20); CALCIUM 8.9 mg/dL (8.4-10.2); CARBON DIOXIDE 28 mmol/L (22-30); CHLORIDE 101 mmol/L (98-107); GLUCOSE 124 mg/dL (75-110); POTASSIUM 4.5 mmol/L (3.6-5.0); TOTAL PROTEIN 6.5 g/dL (6.3-8.2)
[2020-04-18] MEDS ORDERED: ACETAMINOPHEN 325 MG TABLET PO ONE (08:01)
[2020-04-18 08:03] LABS: PLATELET COUNT 336 10^3/uL (150-450)
[2020-04-18 08:16] LABS: APPEARANCE,URINE SLIGHTLY-CLOUDY; BILIRUBIN,URINE NEGATIVE (NEGATIVE); COLOR,URINE YELLOW; GLUCOSE, URINE NEGATIVE (NEGATIVE); KETONES,URINE NEGATIVE (NEGATIVE); LEUKOCYTE ESTERASE,URINE MODERATE (NEGATIVE); NITRITE,URINE NEGATIVE (NEGATIVE); PROTEIN,URINE NEGATIVE (NEGATIVE); URINE SPECIFIC GRAVITY 1.009; UROBILINOGEN,URINE NEGATIVE mg/dL (<2.0)
[2020-04-18] MEDS ORDERED: NORMAL SALINE 1000 ML 1,000 ML IV ONE ×2 (08:40→14:01)
--- NOTE | 2020-04-18 08:58 | EKG REPORT ---
SEVERITY:- ABNORMAL ECG - SINUS RHYTHM LEFT ANTERIOR FASCICULAR BLOCK LEFT VENTRICULAR HYPERTROPHY : Confirmed by: Wes Fairchild 18-Apr-2020 08:57:45
--- NOTE | 2020-04-18 09:14 | ER Document Report ---
ED Dizziness/Weakness - General Chief Complaint: Dizziness Stated Complaint: DIZZINESS/HYPOTENSION/NAUSEA/HEADACHE Time Seen by Provider: 04/18/20 06:56 Mode of Arrival: Medic Information source: Patient Notes: This is a 69-year-old female here today for dizziness. She had an episode this morning where she woke up from her recliner and felt like she was going to pass out. took her blood pressure it was 107/55 at 5 AM this morning. Patient spouse states that her blood pressure is not typically this low. She also had an episode on Wednesday where she passed out and felt dizzy beforehand with nausea. She was evaluated at [facility]. Patient reports having a negative CT scan of the head and no acute findings on spinal films although had a questionable injury to the cervical spine and was placed in a collar and has an appointment next week with neurosurgery. For the past 3 weeks prior to these episodes she has had ringing in her ears. She states that she is not short of breath that has to take more long deep breaths. She also complains of chest pressure that started on Wednesday that is located in the middle of her chest and is nonradiating. Reports that the collar does seem to rub on the chest area where she is tender. She has felt like her balance has been off since the summer and she has had bilateral tingling in her lower extremities for the past couple months. Patient states that the dizzy symptoms are improved when she is lying down and seem to worsen when she is sitting up. She denies any new injury or fall. Patient does complain of generalized headache that is worse where her cervical collar presses on her occipital scalp area. Patient denies any worsening of headache pain or any changes in the headache. TRAVEL OUTSIDE OF THE [place] IN LAST 30 DAYS: No - HPI Patient complains to provider of: Dizziness, Near-syncope, Syncope Onset: This morning Onset/Duration: Intermittent Quality of pain: Pressure Associated symptoms: Chest pain, Dizzy, Almost fainted, Fainted, Headache, Na usea, Ringing/roaring in ear Exacerbated by: Change in position - Related Data Allergies/Adverse Reactions: ibandronate sodium [From Boniva] Allergy (Severe, Verified 04/18/20 07:15) Seizures prochlorperazine edisylate [From Compazine] Allergy (Intermediate, Verified 04/18/20 07:15) delerious, altered mental status Sulfa (Sulfonamide Antibiotics) Allergy (Mild, Verified 04/18/20 07:15) Hives Past Medical History - General Information source: Patient - Social History Smoking Status: Never Smoker Cigarette use (# per day): No Chew tobacco use (# tins/day): No Frequency of alcohol use: None Drug Abuse: None Occupation: disability Lives with: Spouse/Significant other Family History: Reviewed & Not Pertinent Patient has suicidal ideation: No Patient has homicidal ideation: No - Past Medical History Cardiac Medical History: Reports: Hx Coronary Artery Disease - HIGH CHOLESTEROL, Hx DVT, Hx Hypertension, Hx Pulmonary Embolism Denies: Hx Heart Attack Pulmonary Medical History: Reports: Hx Pneumonia Denies: Hx Asthma, Hx Bronchitis, Hx COPD EENT Medical History: Reports: None Neurological Medical History: Reports: Hx Seizures - reaction from taking boniva. Denies: Hx Cerebrovascular Accident Endocrine Medical History: Reports: Hx Hypothyroidism Renal/ Medical History: Denies: Hx Peritoneal Dialysis Malignancy Medical History: Reports: None GI Medical History: Reports: Hx Gastroesophageal Reflux Disease, Hx Ulcer - Upper GI and Lower GI with no bleeding Musculoskeletal Medical History: Reports None, Denies Hx Arthritis Skin Medical History: Reports None Psychiatric Medical History: Reports: None Traumatic Medical History: Reports: None Infectious Medical History: Reports: None Past Surgical History: Reports: Hx Genitourinary Surgery - bladder tuck, Hx Hysterectomy, Hx Orthopedic Surgery - cervical neck fusion, Hx Thyroid Surgery - Thyroidectomy. Denies: Hx Pacemaker - Immunizations Hx Diphtheria, Pertussis, Tetanus Vaccination: Yes Review of Systems - Review of Systems Constitutional: No symptoms reported. denies: Fever EENT: No symptoms reported. denies: Blurred vision, Double vision, Ear pain, Ear discharge, Throat pain Cardiovascular: Chest pain, Dizziness, Lightheaded Respiratory: Cough Gastrointestinal: Nausea. denies: Abdominal pain, Diarrhea, Vomiting, Constipation, Blood streaked bowels Genitourinary: No symptoms reported. denies: Dysuria, Hematuria Female Genitourinary: No symptoms reported Musculoskeletal: Neck pain Skin: No symptoms reported Hematologic/Lymphatic: No symptoms reported Neurological/Psychological: No symptoms reported, Tingling - bilateral lower extremities. denies: Gait changes Physical Exam - Vital signs Vitals: Resp Pulse Ox 18 99 04/18/20 06:29 04/18/20 06:29 - General General appearance: Appears well, Alert In distress: None - HEENT Head: Normocephalic Eyes: Normal Conjunctiva: Normal Cornea: Normal Extraocular movements intact: Yes - Nystagmus noted with extremes of lateral movement Pupils: PERRL Ears: Normal External canal: Normal Tympanic membrane: Normal Nasal: Normal Mouth/Lips: Normal Mucous membranes: Normal Neck: Supple, Other - Posterior cervical midline tenderness, rigid cervical collar in place - Respiratory Respiratory status: No respiratory distress Breath sounds: Normal - Cardiovascular Rhythm: Regular Heart sounds: S1 appreciated, S2 appreciated Murmur: No - Abdominal Inspection: Normal Distension: No distension Bowel sounds: Normal Tenderness: Nontender - Back Back: Tender - Lower lumbar paraspinal tenderness - Extremities General upper extremity: Normal inspection General lower extremity: Normal inspection - Neurological Neuro grossly intact: Yes Cognition: Normal Orientation: AAOx4 [place] Coma Scale Eye Opening: Spontaneous Mary Coma Scale Verbal: Oriented [place] Coma Scale Motor: Obeys Commands [place] Coma Scale Total: 15 Speech: Normal Cranial nerves: Normal Additional motor exam normals: Equal dictaphone transcriber. No: Weakness - Psychological Associated symptoms: Normal affect, Normal mood - Skin Skin Temperature: Warm Skin Moisture: Dry Skin Color: Normal Course - Re-evaluation Re-evalutation: 04/18/20 09:35 On reexamination, patient reports chest discomfort is resolved although the collar does seem to rub on her chest and cause some discomfort when it is pressing on her chest. Patient's respirations even unlabored, patient complains of headache although does not want any thing stronger than Tylenol at this time. Will obtain orthostatic vital signs to evaluate for possible dehydration as patient does have mild increase in renal function at this time as compared to her baseline. Discussed with patient that she could possibly also have some postconcussive syndrome symptoms that could be contributing to her dizziness at this time. 04/18/20 13:[address] Lipscomb regarding patient presentation and diagnostic evaluatio n. He recommends consultation with her primary doctor to discuss maybe adjusting her dose of hypertensive medication given her normal blood pressure here and the fact that she has not taken any blood pressure medicines today. He agrees with plan to give her a prescription for meclizine to take at home to help with her symptoms. No additional testing advised at this time. 04/18/20 14:[address] Romero regarding patient status and concerns about hypotension in the setting that she has not taken her antihypertensive medication today. Dr. Romero advises giving her maintenance IV fluids at 100 mL an hour and admitting her as an observation to telemetry at this time. - Vital Signs Vital signs: Temp Pulse Resp BP Pulse Ox 98.4 F 55 L 16 128/45 H 100 04/18/20 18:27 04/18/20 18:27 04/18/20 18:27 04/18/20 18:27 04/18/20 18:27 - Laboratory Result Diagrams: 04/18/20 07:14 04/18/20 07:14 Laboratory results interpreted by me: 04/18/20 04/18/20 04/18/20 07:14 07:14 07:55 RBC 3.56 L Hct 35.4 L MCV 99 H MCH 33.9 H RDW 14.9 H Sodium 136.2 L BUN 34 H Creatinine 1.55 H Est GFR ( Amer) 40 L Est GFR (MDRD) Non-Af 33 L Glucose 124 H Albumin 3.3 L Ur Leukocyte Esterase MODERATE H 04/18/20 20:34 Labs- All tests 24 hr 04/18/20 04/18/20 04/18/20 07:14 07:14 07:14 WBC 4.9 RBC 3.56 L Hgb 12.1 Hct 35.4 L MCV 99 H MCH 33.9 H MCHC 34.1 RDW 14.9 H Plt Count 336 Lymph % (Auto) 26.4 Schleicher % (Auto) 8.8 Eos % (Auto) 3.4 Baso % (Auto) 0.9 Absolute Neuts (auto) 3.0 Absolute Lymphs (auto) 1.3 Absolute Monos (auto) 0.4 Absolute Eos (auto) 0.2 Absolute Basos (auto) 0.0 Seg Neutrophils % 60.5 Sodium 136.2 L Potassium 4.5 Chloride 101 Carbon Dioxide 28 Anion Gap 7 BUN 34 H Creatinine 1.55 H Est GFR ( Amer) 40 L Est GFR (MDRD) Non-Af 33 L Glucose 124 H Calcium 8.9 Magnesium 1.9 Total Bilirubin 0.6 Direct Bilirubin 0.3 Neonat Total Bilirubin Not Reportable Neonat Direct Bilirubin Not Reportable Neonat Indirect Bili Not Reportable AST 33 ALT 25 Alkaline Phosphatase 60 Troponin I < 0.012 Total Protein 6.5 Albumin 3.3 L Urine Color Urine Appearance Urine pH Ur Specific [place] Urine Protein Urine Glucose (UA) Urine Ketones Urine Blood Urine Nitrite Urine Bilirubin Urine Urobilinogen Ur Leukocyte Esterase Urine WBC (Auto) Urine RBC (Auto) Urine Bacteria (Auto) Squamous Epi Cells Auto Urine Mucus (Auto) Urine Ascorbic Acid 04/18/20 04/18/20 07:55 11:45 WBC RBC Hgb Hct MCV MCH MCHC RDW Plt Count Lymph % (Auto) [place]le[place] % (Auto) Eos % (Auto) Baso % (Auto) Absolute Neuts (auto) Absolute Lymphs (auto) Absolute Monos (auto) Absolute Eos (auto) Absolute Basos (auto) Seg Neutrophils % Sodium Potassium Chloride Carbon Dioxide Anion Gap BUN Creatinine Est GFR ( Amer) Est GFR (MDRD) Non-Af Glucose Calcium Magnesium Total Bilirubin Direct Bilirubin Neonat Total Bilirubin Neonat Direct Bilirubin Neonat Indirect Bili AST ALT Alkaline Phosphatase Troponin I < 0.012 Total Protein Albumin Urine Color YELLOW Urine Appearance SLIGHTLY-CLOUDY Urine pH 5.0 Ur Specific [place] 1.009 Urine Protein NEGATIVE Urine Glucose (UA) NEGATIVE Urine Ketones NEGATIVE Urine Blood NEGATIVE Urine Nitrite NEGATIVE Urine Bilirubin NEGATIVE Urine Urobilinogen NEGATIVE Ur Leukocyte Esterase MODERATE H Urine WBC (Auto) 2 Urine RBC (Auto) 2 Urine Bacteria (Auto) TRACE Squamous Epi Cells Auto 1 Urine Mucus (Auto) RARE Urine Ascorbic Acid NEGATIVE - Diagnostic Test Radiology reviewed: Image reviewed, Reports reviewed - EKG Interpretation by Ms EKG shows normal: Sinus rhythm Rate: Normal [place]/QRS: LAHB/LAFB When compared to previous EKG there are: No significant change Additional EKG results interpreted by me: 04/18/20 20:34 Sinus rhythm with a rate of 63, QTc 439, no acute ischemic changes, no significant change when compared to prior EKG Discharge - Discharge Clinical Impression: Dizziness, Dehydration Chest pain Qualifiers: Chest pain type: unspecified Qualified Code(s): R07.9 - Chest pain, unspecified Condition: Fair Disposition: ADMITTED OBSERVATION Admitting Provider: Heather Unit Admitted: Telemetry
[2020-04-18] MEDS ORDERED: ONDANSETRON HCL INJ/PF 4 MG/2 ML SDV IV ONE (09:22)
[2020-04-18] MEDS ORDERED: MECLIZINE HCL 25 MG TABLET PO ONE (09:22)
--- NOTE | 2020-04-18 10:08 | RADIOLOGY REPORT (SQ) ---
EXAM DESCRIPTION: CHEST SINGLE VIEW IMAGES COMPLETED DATE/TIME: 04/18/2020 9:50 am REASON FOR STUDY: cp COMPARISON: 10/19/2012. EXAM PARAMETERS: NUMBER OF VIEWS: One view. TECHNIQUE: Single frontal radiographic view of the chest acquired. RADIATION DOSE: NA LIMITATIONS: None. FINDINGS: LUNGS AND PLEURA: No opacities, masses or pneumothorax. No pleural effusion. MEDIASTINUM AND HILAR STRUCTURES: No masses. Contour normal. HEART AND VASCULAR STRUCTURES: Heart normal in size. Normal vasculature. BONES: No acute findings. HARDWARE: None in the chest. OTHER: No other significant finding. IMPRESSION: NO ACUTE RADIOGRAPHIC FINDING IN THE CHEST. TECHNICAL DOCUMENTATION: JOB ID: [id number] 2010 [employer]- All Rights Reserved Reading location - IP/workstation name: [email or web address]
--- NOTE | 2020-04-18 20:14 | PDOC H&P ---
History of Present Illness Admission Date/PCP: 04/18/20 15:22 CHRISSIE KE Patient complains of: Dizziness History of Present Illness: HANNAH SOLOMON is a 69 year old female patient known to my practice who presented to the ED with complaint about dizziness, nausea, headache and low blood pressure.SHe was recently evaluated at [facility] ED for a fall incident at home and eventually admitted for pulmonary embolism, acute status unknown, as well as concern for dizziness and abnormality around her previous cervical fusion surgery site. Patient was discharged home on Eliquis. She has history of left leg DVT earlier this year and treatment with Xarelto was associated with significant GI bleed necessitating discontinuation. Her recent outpatient lower extremities venous doppler evaluation revealed resolution of her left leg DVT. Patient reported waking up this morning feeling dizzy which she described as light headedness. Associated imbalance and headache, and postural worsening of her dizziness with sitting and standing from supine posi tion. She reported chest discomfort since her recent fall five days ago. There is associated neck discomfort with use of cervical collar. She denied any associated palpitation or shortness of breath. She reported issue with ringing in her ears which has been longstanding. No earache, pain, or discharge. Her initial ED evaluation was significant for comparatively unusual low blood pressure, patient reported that she did not take her usual blood pressure medication so far today. There was reported improvement with IV fluid hydration and antiemetic and vertigo mediation administration. She was advised hospitalization to observation bed to allow further treatment monitoring of her electrolytes. Her morbidities are as listed below. Past Medical History Cardiac Medical History: Reports: Coronary Artery Disease - HIGH CHOLESTEROL, DVT, Hypertension, Pulmonary Embolism Denies: Myocardial Infarction Pulmonary Medical History: Reports: Pneumonia Denies: Asthma, Bronchitis, Chronic Obstructive Pulmonary Disease (COPD) EENT Medical History: Reports: None Neurological Medical History: Reports: Seizures - reaction from taking boniva Endocrine Medical History: Reports: Hypothyroidism Malignancy Medical History: Reports: None GI Medical History: Reports: Gastroesophageal Reflux Disease Musculoskeltal Medical History: Reports: None Denies: Arthritis Skin Medical History: Reports: None Psychiatric Medical History: Reports: None Denies: Depression Traumatic Medical History: Reports: None Hematology: Reports: Anemia Infectious Medical History: Reports: None Past Surgical History Past Surgical History: Reports: Hysterectomy, Orthopedic Surgery - cervical neck fusion Denies: Pacemaker Social History Lives with: Spouse/Significant other Smoking Status: Never Smoker - Advance Directive Resuscitation Status: Full Code Family History Family History: Reviewed & Not Pertinent Parental Family History Reviewed: Yes Children Family History Reviewed: Yes Sibling(s) Family History Reviewed.: Yes Medication/Allergy Home Medications: Acetaminophen [Tylenol 325 mg Tablet] 325 mg PO DAILYP PRN 09/04/19 Fluticasone Propionate [Flonase Nasal [place] 50 Mcg/[place] 16 gm] 1 spray NAREB DAILY 09/04/19 Levothyroxine Sodium [Synthroid 0.088 mg Tablet] 88 mcg PO Q6AM 09/04/19 Valsartan/Hydrochlorothiazide [Valsartan-Hctz 320-12.5 mg Tab] 1 each PO DAILY 09/04/19 Apixaban [Eliquis 5 mg Tablet] 5 mg PO Q12 04/18/20 Cetirizine HCl [Zyrtec 10 mg Tablet] 10 mg PO DAILY 04/18/20 Allergies/Adverse Reactions: ibandronate sodium [From Boniva] Allergy (Severe, Verified 04/18/20 07:15) Seizures prochlorperazine edisylate [From Compazine] Allergy (Intermediate, Verified 04/18/20 07:15) delerious, altered mental status Sulfa (Sulfonamide Antibiotics) Allergy (Mild, Verified 04/18/20 07:15) Hives Review of Systems Constitutional: PRESENT: headache(s). ABSENT: chills, fever(s) Eyes: PRESENT: visual disturbances - correction of acuity with glasses Ears: ABSENT: hearing changes Nose, Mouth, and Throat: PRESENT: headache(s) Cardiovascular: PRESENT: chest pain - described more as discomfort following her fall at home 5 days ago.. ABSENT: dyspnea on exertion, edema, orthropnea, palpitations Respiratory: ABSENT: cough, dyspnea, hemoptysis Gastrointestinal: ABSENT: abdominal pain, constipation, diarrhea, hematemesis, hematochezia, nausea, vomiting Genitourinary: ABSENT: dysuria, hematuria Musculoskeletal: ABSENT: joint swelling Integumentary: ABSENT: rash, wounds Neurological: PRESENT: dizziness, tingling, other - tinnitus. ABSENT: abnormal gait, abnormal speech, confusion, focal weakness, syncope Psychiatric: ABSENT: anxiety, depression, homidical ideation, suicidal ideation Endocrine: ABSENT: cold intolerance, heat intolerance, menstrual abnormalities, polydipsia, polyuria Hematologic/Lymphatic: ABSENT: easy bleeding, easy bruising, lymphadenopathy Allergic/Immunologic: ABSENT: seasonal rhinorrhea Physical Exam Vital Signs: Temp Pulse Resp BP Pulse Ox 98.4 F 55 L 16 128/45 H 100 04/18/20 18:27 04/18/20 18:27 04/18/20 18:27 04/18/20 18:27 04/18/20 18:27 Intake & Output 04/17/20 04/18/20 04/19/20 06:59 06:59 06:59 Intake Total 1000 Balance 1000 Weight 73.8 kg General appearance: PRESENT: no acute distress Head exam: PRESENT: atraumatic, normocephalic Eye exam: PRESENT: conjunctiva pink, EOMI, PERRLA. ABSENT: scleral icterus Ear exam: PRESENT: normal external ear exam Mouth exam: PRESENT: moist, tongue midline Neck exam: ABSENT: carotid bruit, full ROM - cervical collar in use, JVD, lymphadenopathy, thyromegaly Respiratory exam: PRESENT: clear to auscultation [place] Cardiovascular exam: PRESENT: RRR, +S1, +S2. ABSENT: diastolic murmur, rubs, systolic murmur Pulses: PRESENT: normal dorsalis pedis pul, +2 pedal pulses bilateral Vascular exam: PRESENT: normal capillary refill GI/Abdominal exam: PRESENT: normal bowel sounds, soft. ABSENT: distended, guarding, mass, organolmegaly, rebound, tenderness Rectal exam: PRESENT: deferred Extremities exam: ABSENT: pedal edema Neurological exam: PRESENT: alert, awake, oriented to person, oriented to place, oriented to time, oriented to situation, CN II-XII grossly intact. ABSENT: motor sensory deficit Psychiatric exam: PRESENT: appropriate affect, normal mood. ABSENT: homicidal ideation, suicidal ideation Skin exam: PRESENT: dry, intact, warm. ABSENT: cyanosis, rash Results Laboratory Results: 04/18/20 07:14 04/18/20 07:14 04/18/20 04/18/20 04/18/20 07:14 07:14 07:55 WBC 4.9 RBC 3.56 L Hgb 12.1 Hct 35.4 L MCV 99 H MCH 33.9 H MCHC 34.1 RDW 14.9 H Plt Count 336 Seg Neutrophils % 60.5 Sodium 136.2 L Potassium 4.5 Chloride 101 Carbon Dioxide 28 Anion Gap 7 BUN 34 H Creatinine 1.55 H Est GFR ( Amer) 40 L Glucose 124 H Calcium 8.9 Magnesium 1.9 Total Bilirubin 0.6 AST 33 Alkaline Phosphatase 60 Total Protein 6.5 Albumin 3.3 L Urine Color YELLOW Urine Appearance SLIGHTLY-CLOUDY Urine pH 5.0 Ur Specific [place] 1.009 Urine Protein NEGATIVE Urine Glucose (UA) NEGATIVE Urine Ketones NEGATIVE Urine Blood NEGATIVE Urine Nitrite NEGATIVE Ur Leukocyte Esterase MODERATE H Urine WBC (Auto) 2 Urine RBC (Auto) 2 04/18/20 04/18/20 07:14 11:45 Troponin I < 0.012 < 0.012 Impressions: Chest X-Ray 04/18/20 09:08 IMPRESSION: NO ACUTE RADIOGRAPHIC FINDING IN THE CHEST. Assessment & Plan - Diagnosis (1) Dizziness Is this a current diagnosis for this admission?: Yes Plan: See admitting attending physician orders for details about care plan. (2) Hypotensive episode Is this a current diagnosis for this admission?: Yes Plan: See admitting attending physician orders for details about care plan. (3) Pulmonary embolism on left Is this a current diagnosis for this admission?: Yes Plan: See admitting attending physician orders for details about care plan. (4) HTN (hypertension) Qualifiers: Hypertension type: essential hypertension Qualified Code(s): I10 - Essential (primary) hypertension Is this a current diagnosis for this admission?: Yes Plan: See admitting attending physician orders for details about care plan. (5) HLD (hyperlipidemia) Qualifiers: Hyperlipidemia type: unspecified Qualified Code(s): E78.5 - Hyperlipidemia, unspecified Is this a current diagnosis for this admission?: Yes Plan: See admitting attending physician orders for details about care plan. (6) Hypothyroidism Qualifiers: Hypothyroidism type: unspecified Qualified Code(s): E03.9 - Hypothyroidism, unspecified Is this a current diagnosis for this admission?: Yes Plan: See admitting attending physician orders for details about care plan. (7) Vitamin D deficiency Is this a current diagnosis for this admission?: Yes Plan: See admitting attending physician orders for details about care plan. (8) Seasonal allergic rhinitis Qualifiers: Allergic rhinitis trigger: unspecified Qualified Code(s): J30.2 - Other seasonal allergic rhinitis Is this a current diagnosis for this admission?: Yes Plan: See admitting attending physician orders for details about care plan. - Time Time Spent: 50 to 70 Minutes Medications reviewed and adjusted accordingly: Yes Anticipated Discharge Disposition: Home, Self Care Anticipated Discharge Timeframe: within 24 hours - Inpatient Certification Based on my medical assessment, after consideration of the patient's comorbidities, presenting symptoms, or acuity I expect that the services needed warrant INPATIENT care.: Yes I certify that my determination is in accordance with my understanding of Medicare's requirements for reasonable and necessary INPATIENT services [42 CFR 412.3e].: Yes Medical Necessity: Significant Comorbidiites Make Outpatient Treatment Too Risky, Need Close Monitoring Due to Risk of Patient Decompensation, Need For IV Fluids, Need For Continuous Telemetry Monitoring, Risk of Complication if Not Cared For in Hospital, Risk of Diagnosis Which Will Require Inpatient Eval/Care/Monitoring Post Hospital Care: D/C Aircraft Engine Specialist Documentation - Plan Summary Plan Summary: See admitting attending physician orders for details about care plan.
[2020-04-18] MEDS: APIXABAN 5 MG TABLET PO SCH (21:41)
[2020-04-18] MEDS: NORMAL SALINE 1000 ML 1,000 ML IV PRN (21:42)
[2020-04-19] MEDS: PANTOPRAZOLE SODIUM 40 MG TABLET.DR PO SCH (05:11)
[2020-04-19] MEDS: LEVOTHYROXINE SODIUM 0.088 MG TABLET PO SCH (05:11)
[2020-04-19] MEDS: NORMAL SALINE 1000 ML 1,000 ML IV PRN ×2 (05:29→17:50)
[2020-04-19 06:21] LABS: ABSOLUTE EOSINOPHILS # (AUTO) 0.2 10^3/uL (0.0-0.6); ABSOLUTE LYMPHOCYTES (AUTO) 1.4 10^3/uL (0.5-4.7); ABSOLUTE MONOCYTES (AUTO) 0.3 10^3/uL (0.1-1.4); ABSOLUTE NEUT (AUTO) 1.6 10^3/uL (1.7-8.2); EOSINOPHILS % (AUTO) 6.7 % (0-6); HEMATOCRIT 29.6 % (36.0-47.0); HEMOGLOBIN 10.2 g/dL (12.0-15.5); LYMPHOCYTES % (AUTO) 39.6 % (13-45); MEAN CORPUSCULAR HEMOGLOBIN 34.5 pg (27.0-33.4); MEAN CORPUSCULAR HGB CONC 34.4 g/dL (32.0-36.0); MEAN CORPUSCULAR VOLUME 100 fl (80-97); MONOCYTES % (AUTO) 9.6 % (3-13); PLATELET COUNT 272 10^3/uL (150-450); RED BLOOD COUNT 2.96 10^6/uL (3.72-5.28); RED CELL DISTRIBUTION WIDTH 15.2 % (11.5-14.0); SEGMENTED NEUTROPHILS % (AUTO) 43.1 % (42-78); TOTAL CELLS COUNTED % (AUTO) 100 %; WHITE BLOOD COUNT 3.7 10^3/uL (4.0-10.5)
[2020-04-19 06:44] LABS: ALBUMIN 2.8 g/dL (3.5-5.0); ALKALINE PHOSPHATASE 51 U/L (38-126); ANION GAP 5 (5-19); ASPARTATE AMINO TRANSFERASE 23 U/L (14-36); BILIRUBIN,DIRECT 0.2 mg/dL (0.0-0.4); BILIRUBIN,TOTAL 0.5 mg/dL (0.2-1.3); BLOOD UREA NITROGEN 25 mg/dL (7-20); CALCIUM 8.6 mg/dL (8.4-10.2); CARBON DIOXIDE 26 mmol/L (22-30); CHLORIDE 109 mmol/L (98-107); GLUCOSE 93 mg/dL (75-110); POTASSIUM 4.8 mmol/L (3.6-5.0); TOTAL PROTEIN 5.5 g/dL (6.3-8.2)
[2020-04-19] MEDS: CETIRIZINE 10 MG TABLET PO SCH (10:07)
[2020-04-19] MEDS: APIXABAN 5 MG TABLET PO SCH ×2 (10:07→21:07)
[2020-04-19] MEDS: FLUTICASONE NASAL SPRAY 50 MCG/SPRY 120 SPRAY/16 GM NAREB SCH (10:07)
--- NOTE | 2020-04-19 14:43 | PDOC PROGRESS REPORT ---
Subjective Progress Note for:: 04/19/20 Subjective:: Patient reported less dizziness this morning. No vertigo. Remain mostly in bed due to use of cervical collar. Requested for pain medication due to neck pain. No chest pain or difficulty with breathing. No nausea or vomiting. No fever or chills. Reason For Visit: DIZZINESS, HYPOTENSION, PULMONARY EMBOLISM Physical Exam Vital Signs: Temp Pulse Resp BP Pulse Ox 98.1 F 72 18 118/49 L 98 04/19/20 12:13 04/19/20 12:13 04/19/20 12:13 04/19/20 12:13 04/19/20 12:13 Intake & Output 04/18/20 04/19/20 04/20/20 06:59 06:59 06:59 Intake Total 2540 100 Balance 2540 100 Weight 73.8 kg General appearance: PRESENT: no acute distress, well-developed, well-nourished Head exam: PRESENT: atraumatic, normocephalic Eye exam: PRESENT: conjunctiva pink. ABSENT: scleral icterus Mouth exam: PRESENT: moist Neck exam: ABSENT: full ROM - cervical collar in use Respiratory exam: PRESENT: clear to auscultation [place] Cardiovascular exam: PRESENT: RRR, +S1, +S2. ABSENT: diastolic murmur, rubs, systolic murmur Vascular exam: ABSENT: pallor GI/Abdominal exam: PRESENT: normal bowel sounds, soft. ABSENT: distended, guarding, mass, organolmegaly, rebound, tenderness Extremities exam: ABSENT: pedal edema Neurological exam: PRESENT: alert, awake, oriented to person, oriented to place, oriented to time, oriented to situation, CN II-XII grossly intact. ABSENT: motor sensory deficit Psychiatric exam: PRESENT: appropriate affect, normal mood. ABSENT: homicidal ideation, suicidal ideation Skin exam: PRESENT: dry, warm Results Laboratory Results: 04/19/20 05:17 04/19/20 05:17 04/19/20 04/19/20 05:17 05:17 WBC 3.7 L RBC 2.96 L Hgb 10.2 L Hct 29.6 L MCV 100 H MCH 34.5 H MCHC 34.4 RDW 15.2 H Plt Count 272 Seg Neutrophils % 43.1 Sodium 139.5 Potassium 4.8 Chloride 109 H Carbon Dioxide 26 Anion Gap 5 BUN 25 H Creatinine 1.30 H Est GFR ( Amer) 49 L Glucose 93 Calcium 8.6 Magnesium 1.9 Total Bilirubin 0.5 AST 23 Alkaline Phosphatase 51 Total Protein 5.5 L Albumin 2.8 L 04/18/20 04/18/20 07:14 11:45 Troponin I < 0.012 < 0.012 Impressions: Chest X-Ray 04/18/20 09:08 IMPRESSION: NO ACUTE RADIOGRAPHIC FINDING IN THE CHEST. Assessment & Plan - Diagnosis (1) Dizziness Is this a current diagnosis for this admission?: Yes (2) Hypotensive episode Is this a current diagnosis for this admission?: Yes (3) Pulmonary embolism on left Is this a current diagnosis for this admission?: Yes (4) HTN (hypertension) Qualifiers: Hypertension type: essential hypertension Qualified Code(s): I10 - Essential (primary) hypertension Is this a current diagnosis for this admission?: Yes (5) HLD (hyperlipidemia) Qualifiers: Hyperlipidemia type: unspecified Qualified Code(s): E78.5 - Hyperlipidemia, unspecified Is this a current diagnosis for this admission?: Yes (6) Hypothyroidism Qualifiers: Hypothyroidism type: unspecified Qualified Code(s): E03.9 - Hypothyroidism, unspecified Is this a current diagnosis for this admission?: Yes (7) Vitamin D deficiency Is this a current diagnosis for this admission?: Yes (8) Seasonal allergic rhinitis Qualifiers: Allergic rhinitis trigger: unspecified Qualified Code(s): J30.2 - Other seasonal allergic rhinitis Is this a current diagnosis for this admission?: Yes - Time Time Spent with patient: 25-34 minutes Level of Care: TELE Medications reviewed and adjusted accordingly: Yes Anticipated discharge: Home Anticipated DC Timeframe: within 24 hours - Inpatient Certification Based on my medical assessment, after consideration of the patient's comorbidities, presenting symptoms, or acuity I expect that the services needed warrant INPATIENT care.: Yes I certify that my determination is in accordance with my understanding of Medicare's requirements for reasonable and necessary INPATIENT services [42 CFR 412.3e].: Yes Medical Necessity: Significant Comorbidiites Make Outpatient Treatment Too Risky, Need Close Monitoring Due to Risk of Patient Decompensation, Need For IV Fluids, Need for Pain Control, Risk of Complication if Not Cared For in Hospital, Risk of Diagnosis Which Will Require Inpatient Eval/Care/Monitoring Post Hospital Care: D/C Automation Operator Documentation - Plan Summary Plan Summary: Continue IV fluid support and monitor her improving renal indices. Obtain BMP in AM.
[2020-04-19] MEDS: TRAMADOL HCL 50 MG TABLET PO PRN (23:22)
[2020-04-20] MEDS: NORMAL SALINE 1000 ML 1,000 ML IV PRN ×2 (04:01→19:02)
[2020-04-20] MEDS: PANTOPRAZOLE SODIUM 40 MG TABLET.DR PO SCH (05:09)
[2020-04-20] MEDS: LEVOTHYROXINE SODIUM 0.088 MG TABLET PO SCH (05:09)
[2020-04-20] MEDS: FLUTICASONE NASAL SPRAY 50 MCG/SPRY 120 SPRAY/16 GM NAREB SCH (10:15)
[2020-04-20] MEDS: APIXABAN 5 MG TABLET PO SCH ×2 (10:15→21:06)
[2020-04-20] MEDS: CETIRIZINE 10 MG TABLET PO SCH (10:15)
--- NOTE | 2020-04-20 11:35 | PDOC PROGRESS REPORT ---
Subjective Progress Note for:: 04/20/20 Subjective:: Patient is currently doing well Patient was currently on Eliquis for pulmonary embolism Denied any chest pain no short of breath Patient also have a neck collar due to the cervical disc disorder have appointment to see the neurosurgery in the next week Reason For Visit: DIZZINESS, HYPOTENSION, PULMONARY EMBOLISM Physical Exam Vital Signs: Temp Pulse Resp BP Pulse Ox 97.9 F 77 19 153/60 H 100 04/20/20 07:26 04/20/20 07:26 04/20/20 07:26 04/20/20 07:26 04/20/20 07:26 Intake & Output 04/19/20 04/20/20 04/21/20 06:59 06:59 06:59 Intake Total 2540 2340 632 Balance 2540 2340 632 Weight 72.7 kg General appearance: PRESENT: no acute distress, well-developed, well-nourished Head exam: PRESENT: atraumatic, normocephalic Eye exam: PRESENT: conjunctiva pink, EOMI, PERRLA. ABSENT: scleral icterus Ear exam: PRESENT: normal external ear exam Mouth exam: PRESENT: moist, tongue midline Additional comments: Cervical neck collar is present Neck exam: PRESENT: full ROM. ABSENT: carotid bruit, JVD, lymphadenopathy, thyromegaly Respiratory exam: PRESENT: clear to auscultation [place] Cardiovascular exam: PRESENT: RRR. ABSENT: diastolic murmur, rubs, systolic murmur Pulses: PRESENT: normal dorsalis pedis pul, +2 pedal pulses bilateral Vascular exam: PRESENT: normal capillary refill GI/Abdominal exam: PRESENT: normal bowel sounds, soft. ABSENT: distended, guarding, mass, organolmegaly, rebound, tenderness Rectal exam: PRESENT: deferred Neurological exam: PRESENT: alert, awake, oriented to person, oriented to place, oriented to time, oriented to situation. ABSENT: motor sensory deficit Psychiatric exam: PRESENT: appropriate affect, normal mood. ABSENT: homicidal ideation, suicidal ideation Skin exam: PRESENT: dry, intact, warm. ABSENT: cyanosis, rash Results Laboratory Results: 04/19/20 05:17 04/19/20 05:17 04/18/20 07:55 Clean Catch Midstream Urine Culture - Final Mixed Urogenital Lyudmila 04/18/20 04/18/20 07:14 11:45 Troponin I < 0.012 < 0.012 Impressions: Chest X-Ray 04/18/20 09:08 IMPRESSION: NO ACUTE RADIOGRAPHIC FINDING IN THE CHEST. Assessment & Plan - Diagnosis (1) Pulmonary embolism on left Is this a current diagnosis for this admission?: Yes Plan: Continues the Eliquis (2) Dizziness Is this a current diagnosis for this admission?: Yes Plan: Currently all resolved (3) HLD (hyperlipidemia) Qualifiers: Hyperlipidemia type: unspecified Qualified Code(s): E78.5 - Hyperlipidemia, unspecified Is this a current diagnosis for this admission?: Yes (4) HTN (hypertension) Qualifiers: Hypertension type: essential hypertension Qualified Code(s): I10 - Essential (primary) hypertension Is this a current diagnosis for this admission?: Yes (5) Cervical radiculopathy Is this a current diagnosis for this admission?: Yes - Time Time Spent with patient: 15-24 minutes Level of Care: TELE Medications reviewed and adjusted accordingly: Yes Anticipated discharge: Home Anticipated DC Timeframe: Other - Plan Summary Plan Summary: Continues to current medications
[2020-04-20] MEDS: TRAMADOL HCL 50 MG TABLET PO PRN (22:44)
[2020-04-21] MEDS: PANTOPRAZOLE SODIUM 40 MG TABLET.DR PO SCH (05:16)
[2020-04-21] MEDS: LEVOTHYROXINE SODIUM 0.088 MG TABLET PO SCH (05:16)
[2020-04-21] MEDS: TRAMADOL HCL 50 MG TABLET PO PRN ×2 (08:15→21:32)
--- NOTE | 2020-04-21 10:01 | PDOC PROGRESS REPORT ---
Subjective Progress Note for:: 04/21/20 Subjective:: Patient is currently doing well Patient was currently on Eliquis for pulmonary embolism Denied any chest pain no short of breath Patient also have a neck collar due to the cervical disc disorder have appointment to see the neurosurgery in the next week Reason For Visit: DIZZINESS, HYPOTENSION, PULMONARY EMBOLISM Physical Exam Vital Signs: Temp Pulse Resp BP Pulse Ox 98.0 F 55 L 17 139/61 H 100 04/21/20 04:43 04/21/20 07:00 04/21/20 04:43 04/21/20 04:43 04/21/20 04:43 Intake & Output 04/20/20 04/21/20 04/22/20 06:59 06:59 06:59 Intake Total 2340 1600 Balance 2340 1600 Weight 72.7 kg 72.7 kg General appearance: PRESENT: no acute distress, well-developed, well-nourished Head exam: PRESENT: atraumatic, normocephalic Eye exam: PRESENT: conjunctiva pink, EOMI, PERRLA. ABSENT: scleral icterus Ear exam: PRESENT: normal external ear exam Mouth exam: PRESENT: moist, tongue midline Neck exam: PRESENT: full ROM. ABSENT: carotid bruit, JVD, lymphadenopathy, thyromegaly Respiratory exam: PRESENT: clear to auscultation [place] Cardiovascular exam: PRESENT: RRR. ABSENT: diastolic murmur, rubs, systolic murmur Vascular exam: PRESENT: normal capillary refill GI/Abdominal exam: PRESENT: normal bowel sounds, soft. ABSENT: distended, guarding, mass, organolmegaly, rebound, tenderness Rectal exam: PRESENT: deferred Neurological exam: PRESENT: alert, awake, oriented to person, oriented to place, oriented to time, oriented to situation. ABSENT: motor sensory deficit Psychiatric exam: PRESENT: appropriate affect, normal mood. ABSENT: homicidal ideation, suicidal ideation Skin exam: PRESENT: dry, intact, warm. ABSENT: cyanosis, rash Results Laboratory Results: 04/19/20 05:17 04/19/20 05:17 04/18/20 07:55 Clean Catch Midstream Urine Culture - Final Mixed Urogenital Lyudmila 04/18/20 04/18/20 07:14 11:45 Troponin I < 0.012 < 0.012 Impressions: Chest X-Ray 04/18/20 09:08 IMPRESSION: NO ACUTE RADIOGRAPHIC FINDING IN THE CHEST. Assessment & Plan - Diagnosis (1) Pulmonary embolism on left Is this a current diagnosis for this admission?: Yes (2) Dizziness Is this a current diagnosis for this admission?: Yes (3) HLD (hyperlipidemia) Qualifiers: Hyperlipidemia type: unspecified Qualified Code(s): E78.5 - Hyperlipidemia, unspecified Is this a current diagnosis for this admission?: Yes (4) HTN (hypertension) Qualifiers: Hypertension type: essential hypertension Qualified Code(s): I10 - Essential (primary) hypertension Is this a current diagnosis for this admission?: Yes (5) Cervical radiculopathy Is this a current diagnosis for this admission?: Yes - Time Time Spent with patient: 15-24 minutes Level of Care: TELE Medications reviewed and adjusted accordingly: Yes Anticipated discharge: Home Anticipated DC Timeframe: within 24 hours - Plan Summary Plan Summary: Continues to current medications discharge tomorrow morning
[2020-04-21] MEDS: CETIRIZINE 10 MG TABLET PO SCH (10:31)
[2020-04-21] MEDS: FLUTICASONE NASAL SPRAY 50 MCG/SPRY 120 SPRAY/16 GM NAREB SCH (10:31)
[2020-04-21] MEDS: APIXABAN 5 MG TABLET PO SCH ×2 (10:31→21:30)
[2020-04-21] MEDS: NORMAL SALINE 1000 ML 1,000 ML IV PRN (11:48)
[2020-04-22] MEDS: NORMAL SALINE 1000 ML 1,000 ML IV PRN (02:57)
[2020-04-22] MEDS: LEVOTHYROXINE SODIUM 0.088 MG TABLET PO SCH (05:13)
[2020-04-22] MEDS: PANTOPRAZOLE SODIUM 40 MG TABLET.DR PO SCH (05:13)
[2020-04-22] MEDS: APIXABAN 5 MG TABLET PO SCH (09:16)
[2020-04-22] MEDS: TRAMADOL HCL 50 MG TABLET PO PRN (09:16)
[2020-04-22] MEDS: CETIRIZINE 10 MG TABLET PO SCH (09:16)
[2020-04-22] MEDS: FLUTICASONE NASAL SPRAY 50 MCG/SPRY 120 SPRAY/16 GM NAREB SCH (09:16)
[2020-04-22 09:26] VITALS: BP 122/40
--- NOTE | 2020-04-22 13:48 | PDOC DISCHARGE SUMMARY ---
Impression - Admit/DC Date/PCP Admission Date/Primary Care Provider: 04/18/20 15:22 CHRISSIE DEMPSEY Discharge Date: 04/22/20 - Discharge Diagnosis (1) Dizziness Is this a current diagnosis for this admission?: Yes (2) Hypotensive episode Is this a current diagnosis for this admission?: Yes (3) Pulmonary embolism on left Is this a current diagnosis for this admission?: Yes (4) HTN (hypertension) Is this a current diagnosis for this admission?: Yes (5) HLD (hyperlipidemia) Is this a current diagnosis for this admission?: Yes (6) Hypothyroidism Is this a current diagnosis for this admission?: Yes (7) Vitamin D deficiency Is this a current diagnosis for this admission?: Yes (8) Seasonal allergic rhinitis Is this a current diagnosis for this admission?: Yes - Assessment Summary: Patient was admitted for dizziness with nausea and hypotension. She fell at home couple of days prior to her presentation and she was evaluated at [facility]. There was associated concern about recent diagnosis of pulmonary embolism. There was response to IV fluid, Zofran, and Meclizine administration. Her renal indices did support renal impairment that improved with IV fluid hydration. She remain on Eliquis therapy during this hospitalization. She will be discharge home on her preadmission medication with improvement in her symptoms. She will follow up with already schedule neurosurgery appoint due to concern about her cervical fusion site. She will follow up with me in the office as instructed upon discharge. - Additional Information Resuscitation Status: Full Code Discharge Diet: Cardiac Discharge Activity: Activity As Tolerated Referrals: CHRISSIE DEMPSEY MD [Primary Care Provider] - 05/01/20 10:00 am (Call patient with appointment date and time.) Home Medications: Acetaminophen [Tylenol 325 mg Tablet] 325 mg PO DAILYP PRN 09/04/19 Fluticasone Propionate [Flonase Nasal [place] 50 Mcg/[place] 16 gm] 1 spray NAREB DAILY 09/04/19 Levothyroxine Sodium [Synthroid 0.088 mg Tablet] 88 mcg PO Q6AM 09/04/19 Valsartan/Hydrochlorothiazide [Valsartan-Hctz 320-12.5 mg Tab] 1 each PO DAILY 09/04/19 Apixaban [Eliquis 5 mg Tablet] 5 mg PO Q12 04/18/20 Cetirizine HCl [Zyrtec 10 mg Tablet] 10 mg PO DAILY 04/18/20 History of Present Illiness History of Present Illness: HANNAH SOLOMON is a 69 year old female patient known to my practice who presented to the ED with complaint about dizziness, nausea, headache and low blood pressure.SHe was recently evaluated at [facility] for a fall incident at home and eventually admitted for pulmonary embolism, acute status unknown, as well as concern for dizziness and abnormality around her previous cervical fusion surgery site. Patient was discharged home on Eliquis. She has history of left leg DVT earlier this year and treatment with Xarelto was associated with significant GI bleed necessitating discontinuation. Her recent outpatient lower extremities venous doppler evaluation revealed resolution of her left leg DVT. Patient reported waking up this morning feeling dizzy which she described as light headedness. Associated imbalance and headache, and postural worsening of her dizziness with sitting and standing from supine position. She reported chest discomfort since her recent fall five days ago. Th ere is associated neck discomfort with use of cervical collar. She denied any associated palpitation or shortness of breath. She reported issue with ringing in her ears which has been longstanding. No earache, pain, or discharge. Her initial ED evaluation was significant for comparatively unusual low blood pressure, patient reported that she did not take her usual blood pressure medication so far today. There was reported improvement with IV fluid hydration and antiemetic and vertigo mediation administration. She was advised hospitalization to observation bed to allow further treatment monitoring of her electrolytes. Her morbidities are as listed below. Hospital Course Hospital Course: Patient was admitted for dizziness with nausea and hypotension. She fell at home couple of days prior to her presentation and she was evaluated at [facility]. There was associated concern about recent diagnosis of pulmonary embolism. There was response to IV fluid, Zofran, and Meclizine administration. Her renal indices did support renal impairment that improved with IV fluid hydration. She remain on Eliquis therapy during this hospitaliz ation. She will be discharge home on her preadmission medication with improvement in her symptoms. She will follow up with already schedule neurosurgery appoint due to concern about her cervical fusion site. She will follow up with me in the office as instructed upon discharge. Physical Exam Vital Signs: Temp Pulse Resp BP Pulse Ox 98.8 F 74 17 146/49 H 100 04/22/20 08:29 04/22/20 08:08 04/22/20 08:08 04/22/20 08:08 04/22/20 08:08 Intake & Output 04/21/20 04/22/20 04/23/20 06:59 06:59 06:59 Intake Total 1600 2289 Balance 1600 2289 Weight 72.7 kg 72.7 kg General appearance: PRESENT: no acute distress, well-developed, well-nourished Head exam: PRESENT: atraumatic, normocephalic Eye exam: PRESENT: conjunctiva pink. ABSENT: scleral icterus Mouth exam: PRESENT: moist Neck exam: ABSENT: full ROM - cervical collar in use Respiratory exam: PRESENT: clear to auscultation [place] Cardiovascular exam: PRESENT: RRR, +S1, +S2. ABSENT: diastolic murmur, rubs, systolic murmur Vascular exam: ABSENT: pallor GI/Abdominal exam: PRESENT: normal bowel sounds, soft. ABSENT: distended, guarding, mass, organomegaly, rebound, tenderness Extremities exam: ABSENT: pedal edema Neurological exam: PRESENT: alert, awake, oriented to person, oriented to place, oriented to time, oriented to situation, CN II-XII grossly intact. ABSENT: motor sensory deficit Psychiatric exam: PRESENT: appropriate affect, normal mood. ABSENT: homicidal ideation, suicidal ideation Skin exam: PRESENT: dry, warm Results Laboratory Results: WBC 3.7 10^3/uL (4.0-10.5) L 04/19/20 05:17 RBC 2.96 10^6/uL (3.72-5.28) L 04/19/20 05:17 Hgb 10.2 g/dL (12.0-15.5) L 04/19/20 05:17 Hct 29.6 % (36.0-47.0) L 04/19/20 05:17 MCV 100 fl (80-97) H 04/19/20 05:17 MCH 34.5 pg (27.0-33.4) H 04/19/20 05:17 MCHC 34.4 g/dL (32.0-36.0) 04/19/20 05:17 RDW 15.2 % (11.5-14.0) H 04/19/20 05:17 Plt Count 272 10^3/uL (150-450) 04/19/20 05:17 Lymph % (Auto) 39.6 % (13-45) 04/19/20 05:17 Summers % (Auto) 9.6 % (3-13) 04/19/20 05:17 Eos % (Auto) 6.7 % (0-6) H 04/19/20 05:17 Baso % (Auto) 1.0 % (0-2) 04/19/20 05:17 Absolute Neuts (auto) 1.6 10^3/uL (1.7-8.2) L 04/19/20 05:17 Absolute Lymphs (auto) 1.4 10^3/uL (0.5-4.7) 04/19/20 05:17 Absolute Monos (auto) 0.3 10^3/uL (0.1-1.4) 04/19/20 05:17 Absolute Eos (auto) 0.2 10^3/uL (0.0-0.6) 04/19/20 05:17 Absolute Basos (auto) 0.0 10^3/uL (0.0-0.2) 04/19/20 05:17 Seg Neutrophils % 43.1 % (42-78) 04/19/20 05:17 Sodium 139.5 mmol/L (137-145) 04/19/20 05:17 Potassium 4.8 mmol/L (3.6-5.0) 04/19/20 05:17 Chloride 109 mmol/L (98-107) H 04/19/20 05:17 Carbon Dioxide 26 mmol/L (22-30) 04/19/20 05:17 Anion Gap 5 (5-19) 04/19/20 05:17 BUN 25 mg/dL (7-20) H 04/19/20 05:17 Creatinine 1.30 mg/dL (0.52-1.25) H 04/19/20 05:17 Est GFR ( Amer) 49 (>60) L 04/19/20 05:17 Est GFR (MDRD) Non-Af 40 (>60) L 04/19/20 05:17 Glucose 93 mg/dL (75-110) 04/19/20 05:17 Calcium 8.6 mg/dL (8.4-10.2) 04/19/20 05:17 Magnesium 1.9 mg/dL (1.6-2.3) 04/19/20 05:17 Total Bilirubin 0.5 mg/dL (0.2-1.3) 04/19/20 05:17 Direct Bilirubin 0.2 mg/dL (0.0-0.4) 04/19/20 05:17 Neonat Total Bilirubin Not Reportable 04/19/20 05:17 Neonat Direct Bilirubin Not Reportable 04/19/20 05:17 Neonat Indirect Bili Not Reportable 04/19/20 05:17 AST 23 U/L (14-36) 04/19/20 05:17 ALT 20 U/L (<35) 04/19/20 05:17 Alkaline Phosphatase 51 U/L (38-126) 04/19/20 05:17 Troponin I < 0.012 ng/mL 04/18/20 11:45 Total Protein 5.5 g/dL (6.3-8.2) L 04/19/20 05:17 Albumin 2.8 g/dL (3.5-5.0) L 04/19/20 05:17 Urine Color YELLOW 04/18/20 07:55 Urine Appearance SLIGHTLY-CLOUDY 04/18/20 07:55 Urine pH 5.0 (5.0-9.0) 04/18/20 07:55 Ur Specific [place] 1.009 04/18/20 07:55 Urine Protein NEGATIVE mg/dL (NEGATIVE) 04/18/20 07:55 Urine Glucose (UA) NEGATIVE mg/dL (NEGATIVE) 04/18/20 07:55 Urine Ketones NEGATIVE mg/dL (NEGATIVE) 04/18/20 07:55 Urine Blood NEGATIVE (NEGATIVE) 04/18/20 07:55 Urine Nitrite NEGATIVE (NEGATIVE) 04/18/20 07:55 Urine Bilirubin NEGATIVE (NEGATIVE) 04/18/20 07:55 Urine Urobilinogen NEGATIVE mg/dL (<2.0) 04/18/20 07:55 Ur Leukocyte Esterase MODERATE (NEGATIVE) H 04/18/20 07:55 Urine WBC (Auto) 2 /HPF 04/18/20 07:55 Urine RBC (Auto) 2 /HPF 04/18/20 07:55 Urine Bacteria (Auto) TRACE /HPF 04/18/20 07:55 Squamous Epi Cells Auto 1 /HPF 04/18/20 07:55 Urine Mucus (Auto) RARE /LPF 04/18/20 07:55 Urine Ascorbic Acid NEGATIVE (NEGATIVE) 04/18/20 07:55 04/18/20 04/18/20 07:14 11:45 Troponin I < 0.012 < 0.012 Impressions: Chest X-Ray 04/18/20 09:08 IMPRESSION: NO ACUTE RADIOGRAPHIC FINDING IN THE CHEST. Plan Health Concerns: High readmission risk for dizziness and possible vertigo. Post cervical fusion surgery with worsening pain. Plan of Treatment: Follow up with neurosurgeon for further evaluation and care about her symptoms and cervical fusion issue. Goals: Close outpatient follow up to reduce readmission risk. Time Spent: Less than 30 Minutes Stroke Is this a Stroke Patient?: No Acute Heart Failure Is this a Heart Failure Patient?: No
== END 2020-04-22 10:22 | disposition home or self-care (01) ==
LOC: ER 06:14 → EH 15:22 → 4N 18:21
PROVIDERS: ADMIT Internal Medicine Geriatric Medicine; ATTEND Internal Medicine Geriatric Medicine
DX: I26.99 Other pulmonary embolism without acute cor pulmonale (principal); R42 Dizziness and giddiness; I95.9 Hypotension, unspecified; M54.12 Radiculopathy, cervical region; I10 Essential (primary) hypertension; E78.5 Hyperlipidemia, unspecified; E03.9 Hypothyroidism, unspecified; E55.9 Vitamin D deficiency, unspecified; J30.2 Other seasonal allergic rhinitis; R11.0 Nausea; R51.9 Headache, unspecified; R26.89 Other abnormalities of gait and mobility; M54.2 Cervicalgia; R07.9 Chest pain, unspecified; E86.0 Dehydration; W19.XXXA Unspecified fall, initial encounter; Y92.009 Unspecified place in unspecified non-institutional (private) residence as the place of occurrence of the external cause; Z98.890 Other specified postprocedural states; Z79.01 Long term (current) use of anticoagulants; I25.10 Atherosclerotic heart disease of native coronary artery without angina pectoris; Z79.899 Other long term (current) drug therapy; Z88.2 Allergy status to sulfonamides; Z88.8 Allergy status to other drugs, medicaments and biological substances
CPT/HCPCS: 93005; 99285; 96374; 36415 ×2; 87086; 83735 ×2; 85025 ×2; 80053 ×2; 81001; 84484; 71045; 93010; G0378 ×5; A9270 ×24; J2405; J7030 ×5; J3490

== ENCOUNTER 2020-05-06 13:56 | Emergency (ER) | payer MEDICARE, OTHER ==
--- NOTE | 2020-05-06 14:23 | ER Document Report ---
ED Medical Screen (RME) - General Stated Complaint: NECK/BACK PAIN, DIZZINESS Time Seen by Provider: 05/06/20 14:12 Primary Care Provider: CHRISSIE DEMPSEY MD [Primary Care Provider] - Follow up as needed TRAVEL OUTSIDE OF THE [place] IN LAST 30 DAYS: No - HPI Notes: 05/06/20 14:22 69-year-old female to the emergency department with complaints of lightheadedness, headache, neck pain, back pain, chest pressure that is been ongoing since a syncopal episode on April 14. She states that she passed out on the and was taken to [facility] for further evaluation. She states that she was found to have a clot in her leg that had traveled to her chest. She states she was placed on a blood thinner. She states she was discharged home from [facility] but then came back here the next day because she was still feeling really poorly. She states that she was discharged from here but about a week ago she started to notice that she had black stools. She states she called her primary care physician and she was taken off of her blood thinner. She states that she continues to feel very dizzy and lightheaded. She states that her head hurts so bad that she cannot comb her hair. States her neck and her back also hurt. She states she was referred to a neurosurgeon but when she called the neurosurgeons office today she was told to come to the emergency department. I performed a brief medical screening exam on the patient determined that the patient needs further evaluation and management by main side provider. I have placed initial orders to help expedite care. - Related Data Allergies/Adverse Reactions: ibandronate sodium [From Boniva] Allergy (Severe, Verified 04/18/20 07:15) Seizures prochlorperazine edisylate [From Compazine] Allergy (Intermediate, Verified 04/18/20 07:15) delerious, altered mental status Sulfa (Sulfonamide Antibiotics) Allergy (Mild, Verified 04/18/20 07:15) Hives Past Medical History - Past Medical History Cardiac Medical History: Reports: Hx Coronary Artery Disease - HIGH CHOLESTEROL, Hx DVT, Hx Hypertension, Hx Pulmonary Embolism Denies: Hx Heart Attack Pulmonary Medical History: Reports: Hx Pneumonia Denies: Hx Asthma, Hx Bronchitis, Hx COPD Neurological Medical History: Reports: Hx Seizures - reaction from taking boniva. Denies: Hx Cerebrovascular Accident Endocrine Medical History: Reports: Hx Hypothyroidism Renal/ Medical History: Denies: Hx Peritoneal Dialysis GI Medical History: Reports: Hx Gastroesophageal Reflux Disease, Hx Ulcer - Upper GI and Lower GI with no bleeding Musculoskeltal Medical History: Denies Hx Arthritis Psychiatric Medical History: Denies: Hx Depression Past Surgical History: Reports: Hx Genitourinary Surgery - bladder tuck, Hx Hysterectomy, Hx Orthopedic Surgery - cervical neck fusion, Hx Thyroid Surgery - Thyroidectomy. Denies: Hx Pacemaker - Immunizations Hx Diphtheria, Pertussis, Tetanus Vaccination: Yes Physical Exam - Vital signs Vitals: Temp Pulse Resp BP Pulse Ox 97.8 F 80 16 106/57 L 100 05/06/20 14:03 05/06/20 14:03 05/06/20 14:03 05/06/20 14:03 05/06/20 14:03 Course - Vital Signs Vital signs: Temp Pulse Resp BP Pulse Ox 97.8 F 80 16 106/57 L 100 05/06/20 14:03 05/06/20 14:03 05/06/20 14:03 05/06/20 14:03 05/06/20 14:03 Doctor's Discharge - Discharge Referrals: CHRISSIE DEMPSEY MD [Primary Care Provider] - Follow up as needed
[2020-05-06 14:49] LABS: ABSOLUTE EOSINOPHILS # (AUTO) 0.1 10^3/uL (0.0-0.6); ABSOLUTE LYMPHOCYTES (AUTO) 1.4 10^3/uL (0.5-4.7); ABSOLUTE MONOCYTES (AUTO) 0.4 10^3/uL (0.1-1.4); HEMATOCRIT 29.5 % (36.0-47.0); HEMOGLOBIN 10.1 g/dL (12.0-15.5); LYMPHOCYTES % (AUTO) 35.5 % (13-45); MEAN CORPUSCULAR HEMOGLOBIN 33.7 pg (27.0-33.4); MEAN CORPUSCULAR HGB CONC 34.3 g/dL (32.0-36.0); MEAN CORPUSCULAR VOLUME 98 fl (80-97); MONOCYTES % (AUTO) 10.1 % (3-13); PLATELET COUNT 508 10^3/uL (150-450); RED BLOOD COUNT 3.01 10^6/uL (3.72-5.28); RED CELL DISTRIBUTION WIDTH 14.7 % (11.5-14.0); SEGMENTED NEUTROPHILS % (AUTO) 51.4 % (42-78); TOTAL CELLS COUNTED % (AUTO) 100 %; WHITE BLOOD COUNT 3.8 10^3/uL (4.0-10.5)
[2020-05-06 14:50] LABS: INTERNATIONAL RATION (INR) 1.03; PROTHROMBIN TIME 13.7 SEC (11.4-15.4)
[2020-05-06 15:04] LABS: ALKALINE PHOSPHATASE 65 U/L (38-126); ANION GAP 8 (5-19); ASPARTATE AMINO TRANSFERASE 21 U/L (14-36); BILIRUBIN,DIRECT 0.1 mg/dL (0.0-0.4); BILIRUBIN,TOTAL 0.4 mg/dL (0.2-1.3); BLOOD UREA NITROGEN 30 mg/dL (7-20); CALCIUM 9.9 mg/dL (8.4-10.2); CARBON DIOXIDE 26 mmol/L (22-30); CHLORIDE 102 mmol/L (98-107); GLUCOSE 109 mg/dL (75-110); POTASSIUM 4.6 mmol/L (3.6-5.0); TOTAL PROTEIN 7.2 g/dL (6.3-8.2)
--- NOTE | 2020-05-06 15:23 | RADIOLOGY REPORT (SQ) ---
EXAM DESCRIPTION: CHEST SINGLE VIEW IMAGES COMPLETED DATE/TIME: 05/06/2020 3:05 pm REASON FOR STUDY: back pain, chest pressure, lightheaded COMPARISON: 04/18/2020 EXAM PARAMETERS: NUMBER OF VIEWS: One view. TECHNIQUE: Single frontal radiographic view of the chest acquired. RADIATION DOSE: NA LIMITATIONS: None. FINDINGS: LUNGS AND PLEURA: No opacities, masses or pneumothorax. No pleural effusion. MEDIASTINUM AND HILAR STRUCTURES: No masses. Contour normal. HEART AND VASCULAR STRUCTURES: Heart normal in size. Normal vasculature. BONES: No acute findings. HARDWARE: Surgical clips overlie neck. OTHER: No other significant finding. IMPRESSION: NO ACUTE RADIOGRAPHIC FINDING IN THE CHEST. TECHNICAL DOCUMENTATION: JOB ID: [id number] 2010 [employer]- All Rights Reserved Reading location - IP/workstation name: [email or web address]
[2020-05-06] MEDS ORDERED: LORAZEPAM INJ 2 MG/1 ML VIAL IV ONE (16:13)
[2020-05-06] MEDS ORDERED: NORMAL SALINE 500 ML IV ONE (16:13)
[2020-05-06] MEDS ORDERED: HYDROMORPHONE HCL INJ/PF 2 MG/ML AMPULE IV ONE (16:14)
--- NOTE | 2020-05-06 16:15 | ER Document Report ---
ED General - General Chief Complaint: Dizziness Stated Complaint: NECK/BACK PAIN, DIZZINESS Time Seen by Provider: 05/06/20 14:12 Primary Care Provider: CHRISSIE DEMPSEY MD [Primary Care Provider] - Follow up as needed Mode of Arrival: Ambulatory Information source: Patient Notes: 69-year-old female presenting to the emergency department with a history of fall episode with a head injury and neck pain which occurred approximately April 13/2020 [facility] and found to have a pulmonary embolus age indeterminate, placed on Xarelto which was eventually discontinued when she had GI bleeding symptoms. She continued to have dizziness seen by the neurosurgeon, c-collar removed and told to relax rest. Patient states she is having significant neck pain and headache and needs a pain medication, when she contacted the neurosurgeon she was directed to come to the emergency department for further management. She has not been taking medications for pain. She continues to have lightheadedness episodes she denies syncope or further falling episodes. TRAVEL OUTSIDE OF THE [place] IN LAST 30 DAYS: No - Related Data Allergies/Adverse Reactions: ibandronate sodium [From Boniva] Allergy (Severe, Verified 04/18/20 07:15) Seizures prochlorperazine edisylate [From Compazine] Allergy (Intermediate, Verified 04/18/20 07:15) delerious, altered mental status Sulfa (Sulfonamide Antibiotics) Allergy (Mild, Verified 04/18/20 07:15) Hives sulindac [From Clinoril] Allergy (Verified 05/06/20 15:45) Past Medical History - Social History Smoking Status: Never Smoker Frequency of alcohol use: None Drug Abuse: None Family History: Reviewed & Not Pertinent - Past Medical History Cardiac Medical History: Reports: Hx Coronary Artery Disease - HIGH CHOLESTEROL, Hx DVT, Hx Hypertension, Hx Pulmonary Embolism Denies: Hx Heart Attack Pulmonary Medical History: Reports: Hx Pneumonia Denies: Hx Asthma, Hx Bronchitis, Hx COPD Neurological Medical History: Reports: Hx Seizures - reaction from taking boniva. Denies: Hx Cerebrovascular Accident Endocrine Medical History: Reports: Hx Hypothyroidism Renal/ Medical History: Denies: Hx Peritoneal Dialysis GI Medical History: Reports: Hx Gastroesophageal Reflux Disease, Hx Ulcer - Upper GI and Lower GI with no bleeding Musculoskeletal Medical History: Denies Hx Arthritis Psychiatric Medical History: Denies: Hx Depression Past Surgical History: Reports: Hx Genitourinary Surgery - bladder tuck, Hx Hysterectomy, Hx Orthopedic Surgery - cervical neck fusion, Hx Thyroid Surgery - Thyroidectomy. Denies: Hx Pacemaker - Immunizations Hx Diphtheria, Pertussis, Tetanus Vaccination: Yes Review of Systems - Review of Systems Notes: Constitutional: Negative for fever. HENT: + Neck pain Eyes: Negative for visual changes. Cardiovascular: Negative for chest pain. Respiratory: Negative for shortness of breath. Gastrointestinal: Negative for abdominal pain, vomiting or diarrhea. Genitourinary: Negative for dysuria. Musculoskeletal: Negative for back pain. Skin: Negative for rash. Neurological: + Dizziness, + lightheadedness, + headache 10 point ROS negative except as marked above and in HPI. Physical Exam - Vital signs Vitals: Temp Pulse Resp BP Pulse Ox 97.8 F 80 16 106/57 L 100 05/06/20 14:03 05/06/20 14:03 05/06/20 14:03 05/06/20 14:03 05/06/20 14:03 - Notes Notes: PHYSICAL EXAMINATION: Physical Exam: General: Well-nourished well-developed 69-year-old female in no acute distress HEENT: NC/AT, pupils equal round and reactive to light, MM moist,nares clear, oropharynx clear, airway patent Neck: Is in the paracervical muscle group and upper trapezius muscle groups bilaterally. There is also tenderness at the proximal occipital region at the insertion of the muscles from the cervical rare, tenderness extends around the parascapular regions bilaterally. Good range of motion Lungs: clear, no wheezing, no rales no rhonchi CVS: Regular rate and rhythm no murmur gallop or rub Abdomen: Soft, active, nontender, no masses, no hepatosplenomegaly Ext: No edema, clubbing or cyanosis. Neuro: Alert and responsive, moving all 4 extremities on command, cranial nerves intact, no focal findings Skin: Intact no open lesions, no rash Course - Vital Signs Vital signs: Temp Pulse Resp BP Pulse Ox 97.4 F 80 20 126/68 H 100 05/06/20 15:28 05/06/20 14:03 05/06/20 15:10 05/06/20 15:10 05/06/20 15:11 - Laboratory Result Diagrams: 05/06/20 14:26 05/06/20 14:26 Laboratory results interpreted by me: 05/06/20 05/06/20 14:26 14:26 WBC 3.8 L RBC 3.01 L Hgb 10.1 L Hct 29.5 L MCV 98 H MCH 33.7 H RDW 14.7 H Plt Count 508 H Sodium 135.9 L BUN 30 H Creatinine 1.44 H Est GFR ( Amer) 44 L Est GFR (MDRD) Non-Af 36 L 05/06/20 16:22 I have reviewed laboratory data and used this information for the treatment decisions regarding the patient. - Diagnostic Test Radiology reviewed: Image reviewed, Reports reviewed Radiology results interpreted by me: 05/06/20 17:17 Chest X-Ray 05/06/20 14:21 IMPRESSION: NO ACUTE RADIOGRAPHIC FINDING IN THE CHEST. - EKG Interpretation by Me Rate: Normal - EKG interpreted by Dr. Buchanan: Normal sinus rhythm, rate 72, KS interval 156 ms QT interval 388 ms, left axis deviation, LVH, no acute ST or T wave abnormalities, no ischemic findings, compared to EKG dated 04/18/2020 there are no acute interval changes noted. Interpretation abnormal EKG Discharge - Discharge Clinical Impression: Neck pain, Muscle spasm, Upper back pain Sprain of cervical neck Qualifiers: Encounter type: initial encounter Qualified Code(s): S13.9XXA - Sprain of joints and ligaments of unspecified parts of neck, initial encounter Condition: Good Disposition: HOME, SELF-CARE Instructions: Muscle Relaxers ([facility]), Myalagia (Muscle Pain) ([facility]), Neck Injury (Cervical Strain) ([facility]) Additional Instructions: You were seen in the emergency department with pain in your neck secondary to a recent fall and injury. You are given a prescription for a muscle relaxant and pain medication. Please take the medications as prescribed. You may supplement medications with Tylenol if needed. Apply cold compress to the area of spasm and pain for immediate relief. Follow-up with your primary care provider with regards to a renewal prescription for medications for pain and spasm. If your symptoms are worsening or if you have other concerns you may return to the emergency department for further evaluation and treatment HOME CARE INSTRUCTIONS & INFORMATION: Thank you for choosing us for your medical needs. We hope you're satisfied with the care you received. After you leave, you must properly care for your problem and, at the same time, observe its progress. Any condition can change. Some illnesses can change rapidly over hours or days. If your condition worsens, return to the Emergency Department or see your physician promptly. ABOUT YOUR X-RAYS AND EKG'S: If you had an EKG or X-rays taken, they have been read by the Emergency Physician. The X-rays and EKG's will also be read by a Radiologist or Associate Professor Of Automation within 24 hours. If discrepancies are noted, you will be notified by telephone. Please be certain the ED has a correct telephone number & address where you can be reached. Also, realize that some fractures or abnormalities do not show up on initial X-rays. If your symptoms continue, see your physician. ABOUT YOUR LABORATORY TEST: If you had laboratory tests, the results have been reviewed by the Emergency Physician. Some test results (for example cultures) may not be available for several days. You will be contacted if any test result shows you need additional treatment. Please be certain the ED has a correct telephone number and address where you can be reached. ABOUT YOUR MEDICATIONS: You will receive instructions on how to take your medicine on the prescription label you receive. Additional information may be provided by the Pharmacy. If you have questions afterwards, call the ED for clarification or further instructions. Some prescribed medications may cause drowsiness. Do not perform tasks such as driving a car or operating machinery without consulting your Pharmacist. If you feel you need a refill of pain medication, your condition will need re-evaluation. Please do not call for a r efill of any medication. ABOUT YOUR SIGNATURE: Signature of this document acknowledges to followin. Understanding that you received emergency treatment and that you may be released before al medical problems are known or treated. Please be certain the ED has a correct phone number & address where you can be reached. 2. Acknowledgement that you will arrange for follow-up care as recommended. 3. Authorization for the Emergency Physician to provide information to your follow-up Physician in order to maximize your care. AT ANY TIME, IF YOUR SYMPTOMS CHANGE SIGNIFICANTLY OR WORSEN OR YOU DEVELOP NEW SYMPTOMS, RETURN TO THE EMERGENCY DEPARTMENT IMMEDIATELY FOR RE-EVALUATION. OUR GOAL IS TO PROVIDE EXCELLENT MEDICAL CARE! WE HOPE THAT WE HAVE MET YOUR EXPECTATIONS DURING YOUR EMERGENCY DEPARTMENT VISIT AND THAT YOU FEEL YOU HAVE RECEIVED EXCELLENT CARE! Prescriptions: Baclofen [Baclofen 10 mg Tablet] 10 mg PO TID PRN #14 tablet PRN Reason: Muscle Spasms Tramadol HCl [Ultram 50 mg Tablet] 50 mg PO Q6 PRN #12 tab PRN Reason: For Pain Referrals: CHRISSIE DEMPSEY MD [Primary Care Provider] - Follow up as needed
[2020-05-06 17:45] VITALS: BP 106/52
--- NOTE | 2020-05-06 19:50 | EKG REPORT ---
SEVERITY:- ABNORMAL ECG - SINUS RHYTHM LEFT ANTERIOR FASCICULAR BLOCK LEFT VENTRICULAR HYPERTROPHY TALL R WAVE IN V2, CONSIDER [facility] OR PMI : Confirmed by: William Jackson MD 06-May-2020 19:50:38
== END 2020-05-06 17:50 | disposition home or self-care (01) ==
LOC: ER 13:56
DX: S13.9XXA Sprain of joints and ligaments of unspecified parts of neck, initial encounter (principal); W19.XXXA Unspecified fall, initial encounter; M62.838 Other muscle spasm; R07.89 Other chest pain; M54.9 Dorsalgia, unspecified; R51.9 Headache, unspecified; R42 Dizziness and giddiness; I25.10 Atherosclerotic heart disease of native coronary artery without angina pectoris; I10 Essential (primary) hypertension; Z86.711 Personal history of pulmonary embolism; Z88.8 Allergy status to other drugs, medicaments and biological substances; Z88.2 Allergy status to sulfonamides
CPT/HCPCS: 93005; 99285; 96361; 96374; 96375; 36415; 83735; 85025; 85610; 85730; 80053; 84484; 71045; 93010; J1170; J2060; J7040